=== PATIENT | male | born 1955 | race Caucasian/White ===

== ENCOUNTER 2024-05-29 11:10 | Outpatient (AMB) | payer OTHER, SELFPAY ==
--- NOTE | 2024-05-29 11:23 | A.OFFPC_ITS ---
Vital Signs 05/29/24 11:27 Height 5 ft 11.26 in Weight 209 lb 6 oz BMI 29.0 BP 136/78 Blood Pressure Location Lt brachial Position Sitting Respiration 14 Pulse 63 Pulse Source Pulse Oximeter Pulse Oximetry (%) 95 Oxygen Delivery Method Room Air Intake Visit Reasons: new patient appoint/ med request Intake Note: New patient visit Rn Charge Required: No Allergies No Known Allergies Allergy (Verified 05/29/24 11:24) Medication List - Last Reconciled 05/29/24 by Shweta Montano PA-C ascorbic acid (vitamin C) 500 mg PO DAILY aspirin 81 mg PO DAILY atorvastatin 80 mg PO DAILY bisacodyl 10 mg PO lisinopril 30 mg PO DAILY omeprazole 20 mg PO DAILY sildenafil 100 mg PO Tobacco use date assessed: 05/29/24 Fall risk assessment: No Falls in past year Last assessed Fall Risk: 05/29/24 Dental Screening Dental Screen Date: 05/29/24 Did you have a dental visit in the last 12 months?: Yes Did you have a dental problem in the last 6 months where you did not have access to dental care?: No Was dental information given to patient?: Patient has dentist HPI new patient appoint/ med request HPI Details Pt is a 68 y/o male who presents today to [facility]. He is transferring from [place]. He has a hx of ED, GERD, HTN, HLD and prostate ca and denies any acute concerns today. States that he is here because he will run out of refills on his medications before his next appointment. Uro: dx with prostate ca 10 years ago and is just monitoring it. following with Dr. Mahoney. CV: bp today is 138/78. He is on lisinopril 30 mg. Cholesterol is managed atorvastatin. GI: He states that his GERD is well-controlled with omeprazole. Colonoscopy: 12/29/23- polyps and due in 2028 Former social smoker (smoked while golfing). had AAA screening which was negative [facility] Family History (Updated 05/29/24 @ 12:18 by Sukhwinder San) Mother Hypertension High cholesterol Cancer Father Hypertension High cholesterol Mother High cholesterol Father High cholesterol Diabetes Father Diabetes Cancer Other Asthma Social History (Updated 05/29/24 @ 11:26 by Henna Song CMA) Housing: House Patient Tobacco Use Status: Former Tobacco user Cigarette Packs Per Day: 0.25 Years Smoked: 40 e-Cigarette/Vaping Use: Never Used Second Hand Smoke Exposure: Yes (past) Substance Use Type: Marijuana service: No Current occupational status: retired Cognitive needs: No Hearing needs: No Vision needs: No Questionnaire PHQ-9 Over the last 2 weeks, how often have you been bothered by any of the following problems? 1. Little interest or pleasure in doing things: not at all 2. Feeling down, depressed, or hopeless: not at all 3. Trouble falling or staying asleep, or sleeping too much: several days 4. Feeling tired or having little energy: not at all 5. Poor appetite or overeating: not at all 6. Feeling bad about yourself - or that you are a failure or have let yourself or your family down: not at all 7. Trouble concentrating on things, such as reading the newspaper or watching television: not at all 8. Moving or speaking so slowly that other people could have noticed. Or the opposite - being so fidgety or restless that you have been moving around a lot more than usual: not at all 9. Thoughts that you would be better off or of hurting yourself in some way: not at all Total score: 1 Depression Screening Interpretation: Negative Depression Screening Done: Yes 05450 - PHQ-9 Billing: Yes Source: Developed by Drs. Fili Frausto, Lisa Marcial, Juan Manuel Kirk and colleagues, with an educational chuck from [employer]. Thrive Questionnaire Date Thrive assessed: 05/29/24 I am a: Patient What is your living situation today?: I have a steady place to live Within the past 12 months, did the food you bought not last and you didn't have the money to get more?: Never true Within the past 12 months, did you worry whether your food would run out before you got money to buy more?: Never true Do you have trouble paying for medicines?: No Do you have trouble getting transportation to medical appointments?: No Do you have trouble paying your heating and electricity bill?: No Do you have trouble taking care of your child, family member or friend?: No Do you have trouble with day-to-day activities such as bathing, preparing meals, shopping, managing finances, etc.?: No Are you currently unemployed and looking for a job?: No Are you interested in more education?: No Please select the resources that you would like help with: None Currently or been in a relationship where the following occur: No concerns reported THRIVE Score: 0 AUDIT C Alcohol Use Questionnaire (AUDIT-C) 1. How often do you have a drink containing alcohol?: 4 or more times a week 2. How many drinks containing alcohol do you have on a typical day when you are drinking?: 1 or 2 3. How often do you have six or more drinks on one occasion?: Never Total Score: 4 WILLIAM-7 AMB Questionnaire WILLIAM-7 Date WILLIAM - 7 assessed: 05/29/24 Feeling nervous, anxious, or on edge: 0 = Not at all Not being able to stop or control worryin = Not at all Worrying too much about different things: 0 = Not at all Trouble relaxin = Not at all Being so restless that it is hard to sit still: 0 = Not at all Becoming easily annoyed or irritable: 1 = Several days Feeling afraid as if something awful might happen: 0 = Not at all Total WILLIAM-7 score (0-4 normal; 5-9 mild; 10-14 moderate; 15-21 severe): 1 Source: Developed by Drs. Fili Frausto, Lisa Marcial, Juan Manuel Kirk and colleagues, with an educational chuck from [employer]. WILLIAM-7 Assessment Billing WILLIAM-7 Assessment Tool: WILLIAM-7 Assessment [id number] Physical exam (Primary Care) Vital Signs: Last Vital Signs Pulse 63 05/29/24 11:27 Resp 14 05/29/24 11:27 BP 136/78 05/29/24 11:27 Pulse Ox 95 05/29/24 11:27 Oxygen Delivery Method Room Air 05/29/24 11:27 BMI result Body Mass Index 29.0 Tobacco/Smoking Status: Tobacco use Status Tobacco use date assessed 05/29/24 05/29/24 11:33 Patient Tobacco Use Status Former Tobacco user 05/29/24 11:33 e-Cigarette/Vaping Use Never Used 05/29/24 11:33 PHQ-9: PHQ-9 Score PHQ-9: Total score 1 05/29/24 11:54 Depression Screening Interpretation: Negative Thrive Assessment: Date of Thrive Assessment Date Thrive assessed 05/29/24 05/29/24 11:38 Currently or been in a relationship where the following occur: No concerns reported Assessment and Plan Assessment & Plan (1) Hypertension: Code(s): I10 - Essential (primary) hypertension Qualifiers: Hypertension type: primary hypertension Qualified Code(s): I10 - Essential (primary) hypertension Plan: Continue current regimen. Medications refilled today (2) Hyperlipidemia: Code(s): E78.5 - Hyperlipidemia, unspecified Qualifiers: Hyperlipidemia type: mixed hyperlipidemia Qualified Code(s): E78.2 - Mixed hyperlipidemia Plan: Lipids and LFTs ordered. Continue atorvastatin 80 mg. (3) Prediabetes: Code(s): R73.03 - Prediabetes Plan: Last A1c from [place] was 6. (4) Prostate CA: Code(s): C61 - Malignant neoplasm of prostate Plan: Following with urology. Advised to obtain records from them. (5) GERD (gastroesophageal reflux disease): Code(s): K21.9 - Gastro-esophageal reflux disease without esophagitis Qualifiers: Esophagitis presence: without esophagitis Qualified Code(s): K21.9 - Gastro-esophageal reflux disease without esophagitis Plan: Continue omeprazole. Orders: Orders Complete Blood Count Auto Diff Today C61 - Malignant neoplasm of prostate, E7 8.5 - Hyperlipidemia, unspecified, I10 - Essential (primary) hypertension, K21.9 - Gastro-esophageal reflux disease without esophagitis, R73.03 - Prediabetes Liver Panel Today C61 - Malignant neoplasm of prostate, E78.5 - Hyperlipidemia, unspecified, I10 - Essential (primary) hypertension, K21.9 - Gastro-esophageal reflux disease without esophagitis, R73.03 - Prediabetes, R79.89 - Other specified abnormal findings of blood chemistry TSH reflex Free T4 Today C61 - Malignant neoplasm of prostate, E78.5 - Hyperlipidemia, unspecified, I10 - Essential (primary) hypertension, K21.9 - Gastro-esophageal reflux disease without esophagitis, R73.03 - Prediabetes Hemoglobin A1c Today R73.03 - Prediabetes Comprehensive [place]. Panel Fast Today C61 - Malignant neoplasm of prostate, E78.5 - Hyperlipidemia, unspecified, I10 - Essential (primary) hypertension, K21.9 - Gastro-esophageal reflux disease without esophagitis, R73.03 - Prediabetes Medications: New finasteride 5 mg PO DAILY 90 tabs 3RF sildenafil 100 mg PO DAILY PRN 30 tabs 6RF sexual activity lisinopril 30 mg PO DAILY 90 tabs 3RF atorvastatin 80 mg PO DAILY 90 tabs 3RF Coding Level of Care Code New Pt Level 3 (01221) Complex EM visit Add On G2211 Diagnoses Primary hypertension I10 Hypertension type: primary hypertension Mixed hyperlipidemia E78.2 Hyperlipidemia type: mixed hyperlipidemia Prediabetes R73.03 Prostate CA C61 Gastroesophageal reflux disease without esophagitis K21.9 Esophagitis presence: without esophagitis Additional Codes WILLIAM-7 Assessment Billing - WILLIAM-7 Assessment Tool: WILLIAM-7 Assessment [id number] ([id number])
[2024-05-29 11:27] VITALS: BP 136/78; PULSE 63; RESP 14; O2SAT 95; BMI 29.0
== END 2024-05-29 12:35 | disposition home or self-care (01) ==
PROVIDERS: Visit Provider Physician Assistant
DX: I10 Essential (primary) hypertension (principal); E78.2 Mixed hyperlipidemia; R73.03 Prediabetes; C61 Malignant neoplasm of prostate; K21.9 Gastro-esophageal reflux disease without esophagitis
CPT/HCPCS: 99203; G2211

== ENCOUNTER 2024-08-09 09:11 | Outpatient (REF) | payer OTHER, SELFPAY ==
[2024-08-09 11:48] LABS: Basophils Percent Auto 0.6 % (0-2); Eosinophils Absolute Auto 0.4 X10*3/uL (0.0-0.4); Eosinophils Percent Auto 5.2 % (0-4); Hematocrit 40.4 % (42.0-52.0); Hemoglobin 13.9 g/dl (14.0-18.0); Imm Gran Abs Auto 0.02 X10*3/uL (0.00-0.03); Imm Gran Pct Auto 0.3 % (0.0-0.4); Lymphocytes Absolute Auto 2.1 X10*3/uL (1.2-4.9); MANUAL DIFF FLAG NO; Mean Corpuscular HGB Conc 34.4 g/dl (31.0-36.0); Mean Corpuscular Hemoglobin 30.8 pg (27.0-33.0); Mean Corpuscular Volume 89.4 fL (80.0-98.0); Monocytes Absolute Auto 0.7 X10*3/uL (0.1-1.2); Monocytes Percent Auto 10.8 % (2-11); Neutrophils Absolute Auto 3.6 x10*3/uL (2.0-8.3); Neutrophils Percent Auto 52.1 % (45-73); Platelet Count 172 X10*3/uL (160-400); Red Blood Count 4.52 X10*6/uL (4.60-5.80); Red Cell Distribution Width 13.4 % (11.0-16.0); White Blood Count 6.9 X10*3/uL (4.8-10.8)
[2024-08-09 12:09] LABS: Estimated Average Glucose 126 mg/dL; Hemoglobin A1C 157.7297 umol/L; Total Hemoglobin (HGBA1C) 3711.4197 umol/L
[2024-08-09 12:42] LABS: Alanine Aminotransferase 23 U/L (0-40); Alkaline Phosphatase 70 U/L (39-117); Anion Gap 13 (12-20); Aspartate Amino Transferase 29 U/L (5-37); Bilirubin Direct 0.2 mg/dL (0.0-0.5); Bilirubin Total 0.6 mg/dL (0.0-1.0); Blood Urea Nitrogen 16 mg/dL (9-16); Calcium 9.1 mg/dL (8.4-10.2); Carbon Dioxide 22 mmol/L (22-29); Chloride 109 mmol/L (96-108); Estimated Glomerular Filt Rate > 60; Glucose Fasting 121 mg/dL (60-99); Potassium 4.3 mmol/L (3.3-5.1); Sodium 140 mmol/L (135-145); Total Protein 6.4 g/dL (6.5-8.0)
[2024-08-09 12:43] LABS: TSH reflex Free T4 1.69 uIU/mL (0.32-4.0)
== END 2024-08-09 09:12 | disposition home or self-care (01) ==
LOC: HO.WFDLDS 09:11
PROVIDERS: Visit Provider Physician Assistant
DX: I10 Essential (primary) hypertension (principal); E78.5 Hyperlipidemia, unspecified; R73.03 Prediabetes; C61 Malignant neoplasm of prostate; K21.9 Gastro-esophageal reflux disease without esophagitis; R79.89 Other specified abnormal findings of blood chemistry
CPT/HCPCS: 36415; 80053; 80076; 82248; 83036; 84443; 85025

== ENCOUNTER → 2024-08-12 09:01 | Outpatient (BNVA) | payer OTHER, SELFPAY | PROVIDERS: Visit Provider Nurse Practitioner Family | DX: Z00.00 Encounter for general adult medical examination without abnormal findings (principal); D64.9 Anemia, unspecified; R73.03 Prediabetes; I10 Essential (primary) hypertension; E78.5 Hyperlipidemia, unspecified; Z23 Encounter for immunization | CPT/HCPCS: 90471; 90656 ==

== ENCOUNTER 2024-08-12 09:27 | Outpatient (AMB) | payer OTHER, SELFPAY ==
[2024-08-12 10:01] VITALS: BP 118/60; PULSE 68; RESP 14; TEMP 36.8; O2SAT 95; BMI 29.3
--- NOTE | 2024-08-12 10:01 | MHC.PC.OV ---
Vital Signs 08/12/24 10:01 Height 5 ft 11 in Weight 210 lb 2 oz BMI 29.3 BP 118/60 Blood Pressure Location Rt brachial Position Sitting Respiration 14 Pulse 68 Pulse Source Pulse Oximeter Temp 98.2 F Temp Source Oral Pulse Oximetry (%) 95 Oxygen Delivery Method Room Air Intake Visit Reasons: Physicial Exam Allergies No Known Allergies Allergy (Verified 08/12/24 09:12) Medication List - Last Reconciled 08/12/24 by Shweta Montano PA-C ascorbic acid (vitamin C) 500 mg PO DAILY aspirin 81 mg PO DAILY atorvastatin 80 mg PO DAILY bisacodyl 10 mg PO finasteride 5 mg PO DAILY lisinopril 30 mg PO DAILY omeprazole 20 mg PO DAILY sildenafil 100 mg PO DAILY PRN Tobacco use date assessed: 08/12/24 Dental Screening Dental Screen Date: 08/12/24 HPI Physicial Exam HPI Details Pt is a 68 y/o male who presents today for a cpe. He has a hx of ED, GERD, HTN, HLD and prostate ca and denies any acute concerns today. Uro: dx with prostate ca 10 years ago and is just monitoring it. following with Dr. Mahoney. CV: bp today is 118/60. He is on lisinopril 30 mg. Cholesterol is managed atorvastatin. GI: He states that his GERD is well-controlled with omeprazole. Endo: Last A1c was 6. He does admit to eating more Halloween candy than he should have. States that he has a sweet tooth and does not need to see a licensed embalmer and knows what he needs to do. Colonoscopy: 12/29/23- polyps and due in 2028 Former social smoker (smoked while golfing). had AAA screening which was negative [facility] Family History Mother Hypertension High cholesterol Cancer Father Hypertension High cholesterol Mother High cholesterol Father High cholesterol Diabetes Father Diabetes Cancer Other Asthma Social History Housing: House Patient Tobacco Use Status: Former Tobacco user Cigarette Packs Per Day: 0.25 Years Smoked: 40 e-Cigarette/Vaping Use: Never Used Second Hand Smoke Exposure: Yes (past) Substance Use Type: Marijuana service: No Current occupational status: retired Cognitive needs: No Hearing needs: No Vision needs: No Questionnaire PHQ-9 Over the last 2 weeks, how often have you been bothered by any of the following problems? 9. Thoughts that you would be better off or of hurting yourself in some way: not at all Source: Developed by Drs. Fili Frausto, Lisa Marcial, Juan Manuel Kirk and colleagues, with an educational chuck from [employer]. Thrive Questionnaire Date Thrive assessed: 08/12/24 WILLIAM-7 AMB Questionnaire WILLIAM-7 Date WILLIAM - 7 assessed: 08/12/24 Source: Developed by Drs. Fili Frausto, Lisa Marcial, Juan Manuel Kirk and colleagues, with an educational chuck from [employer]. Physical exam (Primary Care) Vital Signs: Last Vital Signs Temp 98.2 F 08/12/24 10:01 Pulse 68 08/12/24 10:01 Resp 14 08/12/24 10:01 BP 118/60 08/12/24 10:01 Pulse Ox 95 08/12/24 10:01 Oxygen Delivery Method Room Air 08/12/24 10:01 BMI result Body Mass Index 29.3 Tobacco/Smoking Status: Tobacco use Status Tobacco use date assessed 08/12/24 08/12/24 10:03 Patient Tobacco Use Status Former Tobacco user 08/12/24 10:03 e-Cigarette/Vaping Use Never Used 08/12/24 10:03 Thrive Assessment: Date of Thrive Assessment Date Thrive assessed 08/12/24 08/12/24 10:03 Const Orientation/consciousness: patient oriented x3 HENMT Ears: hearing grossly normal bilaterally and TM's normal bilaterally General nose exam: No nasal polyps present Face and sinus: Yes sinuses nontender Mouth: Normal oral and palatal mucosa present Eyes Pupils: Equal, round and reactive pupils present EOM: EOMs intact bilaterally Neck Neck: Yes full ROM and Yes no lymphadenopathy Thyroid: Thyroid normal Chest Chest palpation & inspection: normal inspection of the chest Resp Auscultation: clear to auscultation bilaterally Cardio Rate: regular rate Rhythm: regular rhythm Heart sounds: S1 normal heart sound present and S2 normal heart sound present Peripheral pulses: Peripheral pulses 2+ throughout GI Other: Soft, nontender Auscultation: normal bowel sounds Rectal Exam - Male: Yes deferred General: Yes no CVA tenderness Back/Spine/Pelvis Other: Nontender Back: no CVA tenderness Skin General skin exam: no rashes or lesions noted Neuro General: patient oriented x3, gait normal, CN's II-XI intact bilaterally and deep tendon reflexes 2+ bilaterally Cranial nerves: Yes Equal, round and reactive pupils present Motor exam (neuro): 5/5 motor strength present throughout Sensory Exam: double simultaneous stimulation for sensation normal Coordination: [id number] test normal and Romberg test negative Extrem General: Yes normal to inspection and Yes full ROM Psych Affect: normal affect Attitude: cooperative Thought process: Normal thought process present Thought content: Normal thought content present Insight: Good insight present (Psych) Judgement: Good judgement present (Psych) Results Reviewed Results Reviewed: Laboratory Tests 08/09/24 09:12 WBC 6.9 RBC 4.52 L Hgb 13.9 L Hct 40.4 L Plt Count 172 Creatinine 1.09 Estimated GFR > 60 Hemoglobin A1c % 6.0 AST 29 ALT 23 Alkaline Phosphatase 70 TSH 1.69 Coding Level of Care Code Est Pt Prev Care >65y(45858) Diagnoses Routine general medical examination at a health care facility Z00.00 Anemia D64.9 Prediabetes R73.03 Primary hypertension I10 Hypertension type: primary hypertension Mixed hyperlipidemia E78.2 Hyperlipidemia type: mixed hyperlipidemia Assessment & Plan Assessment & Plan (1) Routine general medical examination at a health care facility: Code(s): Z00.00 - Encounter for general adult medical examination without abnormal findings Plan: Health maintenance reviewed. Labs reviewed today. Flu shot today. (2) Anemia: Code(s): D64.9 - Anemia, unspecified Category: Medical Plan: We will check CBC, iron and B12 in 1 month. (3) Prediabetes: Code(s): R73.03 - Prediabetes Category: Medical Plan: A1c stable. We discussed the pathophysiology of diabetes today. Offered a licensed embalmer but he declines. (4) Hypertension: Code(s): I10 - Essential (primary) hypertension Category: Medical Qualifiers: Hypertension type: primary hypertension Qualified Code(s): I10 - Essential (primary) hypertension Plan: WNL. Continue current regimen. (5) Hyperlipidemia: Code(s): E78.5 - Hyperlipidemia, unspecified Category: Medical Qualifiers: Hyperlipidemia type: mixed hyperlipidemia Qualified Code(s): E78.2 - Mixed hyperlipidemia Plan: Lipids and LFTs ordered. Orders: Orders Hemoglobin A1c 3 Months R73.03 - Prediabetes
== END 2024-08-12 09:58 | disposition home or self-care (01) ==
PROVIDERS: PCP Physician Assistant; Visit Provider Physician Assistant
DX: Z00.00 Encounter for general adult medical examination without abnormal findings (principal); D64.9 Anemia, unspecified; R73.03 Prediabetes; I10 Essential (primary) hypertension; E78.2 Mixed hyperlipidemia; Z23 Encounter for immunization

== ENCOUNTER 2024-09-20 12:31 | Outpatient (REF) | payer OTHER, SELFPAY ==
[2024-09-20 14:23] LABS: MANUAL DIFF FLAG NO
[2024-09-20 14:29] LABS: Basophils Absolute Auto 0.1 X10*3/uL (0.0-0.2); Basophils Percent Auto 0.6 % (0-2); Eosinophils Absolute Auto 0.4 X10*3/uL (0.0-0.4); Eosinophils Percent Auto 4.2 % (0-4); Hematocrit 38.9 % (42.0-52.0); Hemoglobin 13.1 g/dl (14.0-18.0); Imm Gran Abs Auto 0.04 X10*3/uL (0.00-0.03); Imm Gran Pct Auto 0.5 % (0.0-0.4); Lymphocytes Absolute Auto 2.3 X10*3/uL (1.2-4.9); Lymphocytes Percent Auto 27.5 % (20-40); Mean Corpuscular HGB Conc 33.7 g/dl (31.0-36.0); Mean Corpuscular Hemoglobin 30.3 pg (27.0-33.0); Mean Corpuscular Volume 89.8 fL (80.0-98.0); Mean Platelet Volume 9.6 fL (9.4-12.4); Monocytes Absolute Auto 0.9 X10*3/uL (0.1-1.2); Monocytes Percent Auto 10.2 % (2-11); Neutrophils Absolute Auto 4.8 x10*3/uL (2.0-8.3); Platelet Count 220 X10*3/uL (160-400); Red Blood Count 4.33 X10*6/uL (4.60-5.80); Red Cell Distribution Width 13.2 % (11.0-16.0); White Blood Count 8.4 X10*3/uL (4.8-10.8)
[2024-09-20 14:47] LABS: Cholesterol 142 mg/dL (<200); HDL Cholesterol 32 mg/dL (>40); Iron 110 mcg/dL (45-160); LDL Cholesterol Calculated 73 mg/dL (<100); Percent Iron Saturation 47 % (15-50); Total Iron Binding Capacity 234 mcg/dL (228-428); Triglycerides 185 mg/dL (<150); Unsaturated Iron Binding 124 ug/dL
[2024-09-20 15:02] LABS: Ferritin 144 ng/mL (20-250)
[2024-09-20 15:20] LABS: Folate 11.1 ng/mL (> or = 4.0); Vitamin B12 292 pg/mL (200-900)
== END 2024-09-20 12:32 | disposition home or self-care (01) ==
LOC: HO.WFDLDS 12:31
PROVIDERS: Visit Provider Physician Assistant
DX: D64.9 Anemia, unspecified (principal); E78.2 Mixed hyperlipidemia; R73.03 Prediabetes
CPT/HCPCS: 36415; 80061; 82607; 82728; 82746; 83540; 85025

== ENCOUNTER → 2024-10-17 14:12 | Outpatient (BNV) | payer OTHER, SELFPAY | PROVIDERS: PCP Physician Assistant; Referring Provider Physician Assistant; Visit Provider Internal Medicine | DX: D64.9 Anemia, unspecified (principal) | CPT/HCPCS: 99204 ==

== ENCOUNTER 2025-02-06 14:04 | Outpatient (REF) | payer OTHER, SELFPAY ==
--- OUTSIDE RECORDS SUMMARY | 2025-02-06 14:57 | XMS_ITS | Encounter Summary ---
Author Organization [facility] Address [address] [place] [address] Care Team Providers Care Water Resources Engineer Name Role Phone Scarlet Lane MD Primary Care Provider Unavail Nilam Felix MD Primary Care Provider [phone] Encounter Details Date Type Department Care Team Description 11/30/2020 Senior Training Specialist Report Medical Records [address] [place] [address] Andrew Mahoney MD Social History Tobacco Use Types Packs/Day Years Used Date Smoking Tobacco: Former Cigarettes 0.1 25 Q uit: 07/09/2016 Smokeless Tobacco: Former Comments:2 - 3 cigs a day; pt states no tobacco use for 6 weeks nb Alcohol Use Standard Drinks/Week Comments Yes 0 (1 standard drink = 0.6 oz pur e alcohol) 4 - 5/WK Sex Assigned at Date Recorded Male 09/16/2023 12:06 PM EST Job Start Date Occupation Industry Not on file Not on file Not on file documented as of this encounter Plan of Treatment Not on file documented as of this encounter Visit Diagnoses Not on filedocumented in this encounter Care Teams Water Resources Engineer Relationship Specialty Start Date End Date Scarlet Lane MD PCP - General Internal Medicine 08/20/15 01/10/21 Nilam Manning MD [address] [place] [address] PCP - General Internal Medicine 01/11/21 documented as of this encounter
--- OUTSIDE RECORDS SUMMARY | 2025-02-06 14:57 | XMS_ITS | Encounter Summary ---
Author Organization [facility] Address [address] [place] [address] Care Team Providers Care Orthodontic Treatment Coordinator Name Role Phone Scarlet Lane MD Primary Care Provider Brittani Nilam Felix MD Primary Care Provider [phone] Encounter Details Date Type Department Care Team Description 02/08/2017 Telephone Medical Records [address] [place] [address] Abstract, Provider Social History Tobacco Use Types Packs/Day Years Used Date Smoking Tobacco: Former Cigarettes 0.1 25 Q uit: 07/09/2016 Smokeless Tobacco: Current Comments:2 - 3 cigs a day; pt [...] on filedocumented in this encounter Care Teams Orthodontic Treatment Coordinator Relationship Specialty Start Date End Date Scarlet Lane MD PCP - General Internal Medicine 08/20/15 01/10/21 Nilam Manning MD [address] [place] [address] PCP - General Internal Medicine 01/11/21 documented as of this encounter
--- OUTSIDE RECORDS SUMMARY | 2025-02-06 14:57 | XMS_ITS | Encounter Summary ---
Author Organization [facility] Address [address] [place] [address] Care Team Providers Care Carton Wrapper Name Role Phone Nilam Manning MD Primary Care Provider [phone] Reason for Visit * Reason Comments E-prescribe Rx Request Encounter Details Date Type Department Care Team Description 04/05/2023 Refill Adult Medicine [address] [phone] Nilam Manning MD [address] [place] [address] [id number] E-prescribe Rx Request Social History Tobacco Use Types Packs/Day Years [...] file Not on file Not on file COVID-19 Exposure Response Date Recorded In the last 10 days, have yo u been in contact with someone who was confirmed or suspected to have Coronavirus/COVID-19? No / Unsure 03/13/2023 2:43 PM EDT documented as of this encounter Miscellaneous Notes * Telephone Encounter - Tete Tabor M.A. - 04/06/2023 11:46 AM EDT Lab Results Component Value Date CHOL 177 03/10/2023 LDL 109 03/10/2023 HDL 49 03/10/2023 TRIG 99 03/10/2023 SGOT 33 03/10/2023 SGPT 48 03/10/2023 Last appt with pcp 03/13/23 Pending appt with pcp 06/07/23 * Telephone Encounter - Berta Pena - 04/05/2023 3:46 PM EDT Patient would like script to be: E-PRESCRIBED/FAXED TO PHARMACY WHEN WAS THE PATIENT'S LAST APPOINTMENT IN ADULT MEDICINE? 03/13/2023 WHEN WAS THE LAST TIME THE PATIENT SAW THEIR PCP? Same as above Does patient have an upcoming appointment? Yes 06/07/2023 (THE MEDICATION REQUESTED IS ON THE MED LIST ABOVE) All of the medications requested were on the CURRENT MEDS list Did you check the Pharmacy information above?: YES Patient wants: 30 -day supply Is this a mail order prescription request ? NO If the refill is from a FAXED refill request what is the RX # listed on the fax? N/A Patients current insurance carrier is: Payor: [facility] / Plan: [facility] MEDICARE COMPLETE $0 [id number] / Product Type: HMO [id number] documented in this encounter Plan of Treatment Not on file documented as of this encounter Visit Diagnoses Not on filedocumented in this encounter Care Teams Carton Wrapper Relationship Specialty Start Date End Date Nilam Manning MD [address] [place] [id number] PCP - General Internal Medicine 01/11/21 documented as of this encounter
--- OUTSIDE RECORDS SUMMARY | 2025-02-06 14:57 | XMS_ITS | Encounter Summary ---
Author Organization [facility] Address [address] [place] [address] Care Team Providers Care Sales Operations Consultant Name Role Phone Scarlet Lane MD Primary Care Provider Brtitani Nilam Felix MD Primary Care Provider [phone] Encounter Details Date Type Department Care Team Description 04/12/2019 Orders Only Medicine/Pediatrics - [address] [phone] Viktor Toledo PA-C Social History Tobacco Use Types Packs/Day Years [...] on filedocumented in this encounter Care Teams Sales Operations Consultant Relationship Specialty Start Date End Date Scarlet Lane MD PCP - General Internal Medicine 08/20/15 01/10/21 Nilam Manning MD [address] [place] [id number] PCP - General Internal Medicine 01/11/21 documented as of this encounter
--- OUTSIDE RECORDS SUMMARY | 2025-02-06 14:57 | XMS_ITS | Encounter Summary ---
Author Organization [facility] Address [address] [place] [address] Care Team Providers Care Survey Director Name Role Phone Nilam Manning MD Primary Care Provider [phone] Encounter Details Date Type Department Care Team Description 12/15/2022 Hosiery Pairer Report Medical Records [address] [place] [phone] Andrew Mahoney MD Social History Tobacco Use [...] on filedocumented in this encounter Care Teams Survey Director Relationship Specialty Start Date End Date Nilam Manning MD [address] [place] [address] PCP - General Internal Medicine 01/11/21 documented as of this encounter
--- OUTSIDE RECORDS SUMMARY | 2025-02-06 14:57 | XMS_ITS | Encounter Summary ---
Author Organization [facility] Address [address] [place] [address] Care Team Providers Care Whiting Machine Operator Name Role Phone Pierre Syed MD Primary Care Provider Unavail able Scarlet Lane MD Primary Care Provider Unavaila ble Nilam Manning MD Primary Care Provider [phone] Encounter Details Date Type Department Care Team Description 10/18/2011 Eye Chandelier Maker Report Medical Records [address] [place] [address] Lulu Maki [address] [place] [address] [phone] Social History Tobacco Use Types Packs/Day Years Used Date Smoking Tobacco: Every Day Cigarettes 25 Smokeless Tobacco: Never Comments:1 1/2 cigs a day Alcohol Use Standard Drinks/Week Comments Yes 0 (1 standard drink = 0.6 oz pur e alcohol) 4/WK Sex Assigned at Date Recorded Male 09/16/2023 12:06 PM EST Job Start Date Occupation Industry Not on file Not on file Not on file documented as of this encounter Plan of Treatment Not on file documented as of this encounter Visit Diagnoses Not on filedocumented in this encounter Care Teams Whiting Machine Operator Relationship Specialty Start Date End Date Pierre Syed MD PCP - General 07/22/1998 08/19/[address] MD PCP - General Internal Medicine 08/20/15 01/10/21 Nilam Manning MD [address] [place], [place] [phone] PCP - General Internal Medicine 01/11/21 documented as of this encounter
--- OUTSIDE RECORDS SUMMARY | 2025-02-06 14:57 | XMS_ITS | Encounter Summary ---
Author Organization [facility] Address [address] [place] [address] Care Team Providers Care Powder Mixer Name Role Phone Nilam Manning MD Primary Care Provider [phone] Encounter Details Date Type Department Care Team Description 12/27/2022 Jack Strip Assembler Report Medical Records [address] [place] [phone] Maria Del Carmen Scanlon PA-C Social History Tobacco Use Types Packs/Day [...] on filedocumented in this encounter Care Teams Powder Mixer Relationship Specialty Start Date End Date Nilam Manning MD [address] [place] [address] PCP - General Internal Medicine 01/11/21 documented as of this encounter
--- OUTSIDE RECORDS SUMMARY | 2025-02-06 14:57 | XMS_ITS | Encounter Summary ---
Author Organization [facility] Address [address] [place] [address] Care Team Providers Care Web Development Manager Name Role Phone Scarlet Lane MD Primary Care Provider Nilam Lopez MD Primary Care Provider [phone] Reason for Visit * Reason Onset Date Comments refill request 01/07/2021 Encounter Details Date Type Department Care Team Description 01/07/2021 Refill Medicine/Pediatrics - [address] [address] MD refill request Social History Tobacco Use Types Packs/Day Years [...] on file documented as of this encounter Miscellaneous Notes * Telephone Encounter - Lo Deluca M.A. - 01/07/2021 10:06 AM EDT Last office visit 07/29/20 with Merary Venegas Pt needs to choose new PCP and schedule a visit * Telephone Encounter - Jewelskaylan Billy - 01/07/2021 9:59 AM EDT Patient would like script to be: E-PRESCRIBED/FAXED TO PHARMACY WHEN WAS THE PATIENT'S LAST APPOINTMENT IN ADULT MEDICINE? 07/29/20 WHEN WAS THE LAST TIME THE PATIENT SAW THEIR PCP? 10/18/19 Does patient have an upcoming appointment? Pt at work - will have him call to update PCP and make an appointment (THE MEDICATION REQUESTED IS ON THE MED LIST ABOVE) All of the medications requested were on the CURRENT MEDS list Did you check the Pharmacy information above?: YES Patient wants: 90 -day supply Is this a mail order prescription request ? NO If the refill is from a FAXED refill request what is the RX # listed on the fax? N/A Patients current insurance carrier is: Payor: [employer] / Plan: [place] $25 [place] [id number] / Product Type: HMO [id number] documented in this encounter Plan of Treatment Not on file documented as of this encounter Visit Diagnoses Not on filedocumented in this encounter Care Teams Web Development Manager Relationship Specialty Start Date End Date Scarlet Lane MD PCP - General Internal Medicine 08/20/15 01/10/21 Nilam Manning MD [address] [place] [address] PCP - General Internal Medicine 01/11/21 documented as of this encounter
--- OUTSIDE RECORDS SUMMARY | 2025-02-06 14:57 | XMS_ITS | Encounter Summary ---
Author Organization [facility] Address [address] [place] [address] Care Team Providers Care Advertising Sales Assistant Name Role Phone Scarlet Lane MD Primary Care Provider Unavail Nilam Felix MD Primary Care Provider Encounter Details Date Type Department Care Team Description 10/14/2019 Spectrographer Report Medical Records [address] [place] [address] Andrew Mahoney MD Social History Tobacco Use [...] on filedocumented in this encounter Care Teams Advertising Sales Assistant Relationship Specialty Start Date End Date Scarlet Lane MD PCP - General Internal Medicine 08/20/15 01/10/21 Nilam Manning MD [address] [place] [address] PCP - General Internal Medicine 01/11/21 documented as of this encounter
--- OUTSIDE RECORDS SUMMARY | 2025-02-06 14:57 | XMS_ITS | Encounter Summary ---
Author Organization [facility] Address [address] [place] [address] Care Team Providers Care Retail Sales Manager Name Role Phone Scarlet Lane MD Primary Care Provider Nilam Lopez MD Primary Care Provider [phone] Reason for Visit * Reason Onset Date Comments Pre-visit Diabetes Lab Adult Medicine 08/24/201609/07 Encounter Details Date Type Department Care Team Description 08/24/2016 Telephone Medicine/Pediatrics - [address] [address] MD Pre-visit Diabetes Lab Adult Medicine (09/07) Social History Tobacco Use Types Packs/Day Years Used Date Smoking Tobacco: Former Cigarettes 0.1 25 Q uit: 10/21/2015 Smokeless Tobacco: Current Comments:2 - 3 cigs [...] encounter Miscellaneous Notes * Telephone Encounter - Suki Sanchez - 08/24/2016 10:39 AM EST Sent patient an email advising them to complete diabetic lab work at least three days prior to their upcoming appointment. documented in this encounter Plan of Treatment Not on file documented as of this encounter Results * HEMOGLOBIN A1C (09/07/2016 2:45 PM EST) Glycosylated Hemoglobin A1C 5.9 4.0 - 6.0 % 09/07/2016 9:36 PM EST [facility] Comment: HbA1C VALUES MAY NOT ACCURATELY REFLECT MEAN BLOOD GLUCOSE IN PATIENTS WITH HEMOGLOBIN VARIANTS SUCH HbF, HbS. 09/07/2016 2:45 PM EST 09/07/2016 2:[address] MD LAB [address] documented in this encounter Visit Diagnoses Diagnosis Diet-controlled type 2 diabetes mellitus- Primary Type II or unspecified type diabetes mellitus without mention of complication, not stated as uncontrolled documented in this encounter Care Teams Retail Sales Manager Relationship Specialty Start Date End Date Scarlet Lane MD PCP - General Internal Medicine 08/20/15 01/10/21 Nilam Manning MD [address] [place] [address] PCP - General Internal Medicine 01/11/21 documented as of this encounter
--- OUTSIDE RECORDS SUMMARY | 2025-02-06 14:57 | XMS_ITS | Encounter Summary ---
Author Organization [facility] Address [address] [place] [address] Care Team Providers Care Cigar Head Puncher Name Role Phone Scarlet Lane MD Primary Care Provider Unavail Nilam Felix MD Primary Care Provider [phone] Encounter Details Date Type Department Care Team Description 12/28/2016 Banquet Line Cook Report Medical Records [address] [place] [address] Erik Schulte MD Social History Tobacco Use Types Packs/Day [...] on filedocumented in this encounter Care Teams Cigar Head Puncher Relationship Specialty Start Date End Date Scarlet Lane MD PCP - General Internal Medicine 08/20/15 01/10/21 Nilam Manning MD [address] [place] [address] PCP - General Internal Medicine 01/11/21 documented as of this encounter
--- OUTSIDE RECORDS SUMMARY | 2025-02-06 14:57 | XMS_ITS | Encounter Summary ---
Author Organization [facility] Address [address] [place] [address] Care Team Providers Care Crab Catcher Name Role Phone Pierre Syed MD Primary Care Provider Unavail able Scarlet Lane MD Primary Care Provider Unavaila ble Nilam Manning MD Primary Care Provider [phone] Encounter Details Date Type Department Care Team Description 07/29/2014 Questioned Documents Examiner Report Medical Records [address] [place] [address] Maria Del Carmen Scanlon PA-C Social History Tobacco Use Types Packs/Day Years Used Date Smoking Tobacco: Every Day Cigarettes 0.1 25 Smokeless Tobacco: Current Comments:2 - 3 cigs a day Alcohol Use Standard Drinks/Week [...] on filedocumented in this encounter Care Teams Crab Catcher Relationship Specialty Start Date End Date Pierre Syed MD PCP - General 07/22/1998 08/19/[address] MD PCP - General Internal Medicine 08/20/15 01/10/21 Nilam Manning MD [address] [place] [address] PCP - General Internal Medicine 01/11/21 documented as of this encounter
--- OUTSIDE RECORDS SUMMARY | 2025-02-06 14:57 | XMS_ITS | Clinical Summary ---
Author Organization [facility] Address [address] [place] [address] Care Team Providers Care Electronic Design Engineer Name Role Phone Nilam Manning MD Primary Care Provider [phone] Allergies Active Allergy Reactions Severity Noted Date Comments Seasonal Allergies 03/17/2009 Medications Medication Sig Dispensed Refills Start Date End Date Status VITAMIN C 1000 MG OR TABS Take 500 mg by mouth. 0 Active CALCIUM 600 + D OR qd 0 7 Active SB LOW DOSE ASA EC 81 MG OR TBEC 1 TABLET DAILY 0 Active famotidine (PEPCID) 20 MG tablet TAKE 1 TABLET BY MOUTH TWICE DAILY NEEDED FOR HEARTBURN 180 Tablet 1 2 Active bisacodyl (Dulcolax) 5 MG EC tablet Take 2 tabs by mouth right before beginning bowel prep. Follow instructions given by office for timing. 2 Tablet 0 4 Active polyethylene glycol (GoLYTELY,NuLYTELY) 236 g suspension Take 240 mL by mouth once for 1 dose. Take 4L by mouth once for one dose. May substitue any PEG. Starting at 6PM the night before your procedure drink 1 8oz glasses at your own pace until rectals run clear. 4000 mL 0 4 Active atorvastatin (LIPITOR) 80 MG tablet Take 1 Tablet by mouth daily. 90 Tablet 1 4 Active omeprazole (PRILOSEC) 20 MG capsule Take 1 Capsule by mouth daily. 30 Capsule 5 4 Active lisinopril (PRINIVIL,ZESTRIL) 30 MG tablet Take 1 Tablet by mouth daily. 90 Tablet 1 4 Active finasteride (PROSCAR) 5 MG tablet Take 1 Tablet by mouth daily. 90 Tablet 1 4 Active sildenafil (VIAGRA) 100 MG tabletIndications:Essent ial hypertension, benign,Pure hypercholesterolemia TAKE 1 TABLET BY MOUTH 1 HOUR PRIOR TO SEXUAL INTERCOURSE 20 Tablet 2 4 Active Active Problems Patient Care Coordination No te Formatting of this note is d ifferent from the original. Checking Your Blood Sugars Please check your blood sugars 2 times per week. Please check your sugars at the following times of day: before breakfast Your Blood Sugar Goals Pre Meal: 90-130 2 hours after meals: 110-160 Bedtime: 110-150 Use the Results ?? Bring your glucometer to every appointment ?? Write your fingerstick blood sugars down on a log sheet or record book. Bring them to your appointment ?? Look for patterns in the numbers. The results help you and your provider make decisions about your diabetes treatment plan. Your Results and your Goals Your Result / Date of Completion Your Goal / How Often to Assess Component Value Date HGBA1C 5.9 09/07/2016 Less than 7%--- 4 times per year BP Readings from Last 1 Encounters: 09/08/16 112/70 Less than 130/80--- every visit Component Value Date LDL 88 02/10/2016 LDL less than 100--- once per year Component Value Date MALBUR 6.9 02/10/2016 Less than 30--- once per year Wt Readings from Last 1 Encounters: 09/08/16 215 lb 9.6 oz (97.796 kg) Your goal weight by next visit: 208 --- reassess 2-4 times a year Health Maintenance Due Topic Date Due ? ? Adult Immunization: Zostavax For Patients Over 60 2015 ? ? Influenza (#1 of 1) 06/02/2016 ? ? Diabetes: Annual Foot Exam 09/02/2016 ? ? Diabetes: Annual Care Plan 09/02/2016 Your Action Plan Your diabetes is well controlled and no changes are required to your current plan. Check blood glucose as directed and write down all results. Check feet for sores every day Continue to work on weight loss with a goal of losing 2-4 pounds per month Increase physical activity Contact me if you experience any barriers to care such as inability to purchase your medication, difficulty getting to your appointments or difficulty understanding your care plan Please get your yearly flu shot When to Call your Healthcare Provider If your blood sugar falls below 70 and you do not know why or you become unconscious If you are sick and unable to take liquids because or nausea or vomiting If you have a fever over 101 If your blood sugar is 300 or higher on greater than 3 separate occasions during the same week If you are just unsure what to do Educational Resources [place] [employer] (www.diabetes.org) Centers for Disease Control and Prevention (www.cdc.gov/diabetes) This care plan was created in collaboration with Prakash Ansari on 09/08/2016 Problem Noted Date Polyp of colon 01/01/2024 Overview: Per GI reported during recent colonoscopy December 2023, multiple in cecum and rectum. GI would determine next surveillance colonoscopy Atypical chest pain 11/09/2020 Overview: Nonproductive stress test recommending stress echo in October 2020. Patient declined stress echo. Patient declined follow-up with cardiology. He was made aware of the risks of not pursuing further cardiac work-up including undiagnosed cardiovascular disease which can lead to HI, CVA and adverse medical complication including but not limited to . Prediabetes 09/02/2015 Prostate cancer - Romie 6, 1 core 10% 12/26/2013 Overview: Sees [facility] BPH (benign prostatic hyperplasia) 10/23 Overview: Psa 4.4 10/14 - start finasteride GERD (gastroesophageal reflux disease) 1 Overview: Normal EGD on PPI rx 07/20/2012. Diverticulosis of colon (without mention of hemorrhage) 07/20/2012 Overview: Incidental finding at colonoscopy 07/20/2012. Erectile dysfunction 07/16/2009 Essential hypertension, benign 6 Former tobacco use 09/22/2006 Pure hypercholesterolemia 07/25/2006 Overweight 07/25/2006 Resolved Problems Problem Noted Date Resolved Date Diabetes with neurologic complications 8 09/02/2015 Immunizations Name Administration Dates Next Due COVID-19 (Pfizer) 01/16/2021,12/26/2020 Influenza (> 6 Months) 09/08/2016,2014,08/26/2014,08/13,07/16/2012,07/18/2011,08/03/2010 ,09/23/2009,10/13/2008 Influenza H1N1 Pandemic Flu Vaccine 10/16/2009 Influenza Vaccine-preservati ve Free-quadrivalent 4 Years 10/18/2019,09/05/2018 Influenza Vaccine-quadrivale nt 4 Years Plus 08/28/2017 Pneumoccoccal(Adult) Polysac charide PPSV23 10/13/2008 Pneumococcal Conjugate PCV-13 02/26/2015 TD (STATE SUPPLIED FOR ADULT S AND CHILDREN) 09/05/2018,05/04/2000 Tdap 08/18/2008 Family History Medical History Relation Name Comments No Known Problems Aunt No Known Problems Brother 1 No Known Problems Brother 2 Cancer of the Prostate Father Cataract Father Cholesterol Level Father Diabetes Father No Known Problems Maternal Grandfather No Known Problems Maternal Grandmother Cancer, Other Mother RENAL Stroke Mother passed 08/2017 No Known Problems Other No Known Problems Paternal Grandfather No Known Problems Paternal Grandmother No Known Problems Sister 1 No Known Problems Sister 2 No Known Problems Sister 3 No Known Problems Uncle Blindness Negative Hx Glaucoma Negative Hx Macular Degeneration Negative Hx Strabismus Negative Hx Relation Name Status Comments Aunt Brother 1 Alive healthy Brother 2 Alive healthy Father Dementia, PROST ATE CA, DM, CHOL Maternal Grandfather (Age 60s) U K - appendix infection? Maternal Grandmother (Age 93) Mother (Age 88) RENAL CANC ER , HEART DISEASE CAD Other Paternal Grandfather (Age 70s) U K appendix infection? Paternal Grandmother (Age 70s) U K Sister 1 Alive healthy Sister 2 Alive healthy Sister 3 Alive healthy Uncle Social History Tobacco Use Types Packs/Day Years Used Date Smoking Tobacco: Former Cigarettes 0.1 25 Q uit: 07/09/2016 Smokeless Tobacco: Former Tobacco Cessation:Counseling Given: Not Answered Comments:2 - 3 cigs a day; 12/02/15 pt states no tobacco use for 6 weeks nb Alcohol Use Standard Drinks/Week Comments Yes 0 (1 standard drink = 0.6 oz pur e alcohol) 4 - 5/WK Sex Assigned at Date Recorded Male 09/16/2023 12:06 PM EST Job Start Date Occupation Industry Not on file Not on file Not on file Last Filed Vital Signs Vital Sign Reading Time Taken Comments Blood Pressure 134/86 06/07/2023 3:43 PM EDT Pulse 70 12/26/2023 8:41 AM EDT Temperature 36.5 ??C (97.7 ??F) 12/26/2023 8:41 AM ED T Respiratory Rate 14 12/26/2023 8:41 AM EDT Oxygen Saturation 97% 06/07/2023 3:43 PM EDT Inhaled Oxygen Concentration - - Weight 93 kg (205 lb) 12/26/2023 8:41 AM EDT Height 180.3 cm (5' 11 ) 12/26/2023 8:41 AM EDT Body Mass Index 28.59 12/26/2023 8:41 AM EDT Plan of Treatment Health Maintenance Due Date Last Done Comments DEPRESSION SCREEN 1967 SHINGLES VACCINE (1 of 2) 2005 FALL RISK ASSESSMENT 2020 PNEUMOCOCCAL VACCINE (3 - PP SV23 or PCV20) 2020 02/26/2015, 10/13/2008 Covid-19 Vaccine ( - 2022-2 4 season) 2024 01/16/2021, 12/26/2020 BMI CHECK/ADVISE 10/02/2024 12/26/2023, 03/2023, 03/13/2023, Additional history exists INFLUENZA (Season Ended) 2025 020, 10/18/2019, 09/05/2018, Additional history exists DTAP/TDAP/TD (3 - Td or Tdap) 09/05/2028, 08/18/2008, 05/04/2000 CHOLESTEROL SCREENING 12/21/2028 12/22/2023 , 03/10/2023, 08/23/2021, Additional history exists COLON CANCER SCREENING 12/28/2028 , 07/20/2012, 07/20/2012, Additional history exists HEPATITIS C SCREENING Completed 05/10/2013 ABDOMINAL AORTIC ANEURYSM (A AA) SCREENING Completed 02/20/2023 Care Teams Electronic Design Engineer Relationship Specialty Start Date End Date Nilam Manning MD [address] [place] [address] PCP - General Internal Medicine 01/11/21
--- OUTSIDE RECORDS SUMMARY | 2025-02-06 14:57 | XMS_ITS | Encounter Summary ---
Author Organization [facility] Address [address] [place] [address] Care Team Providers Care Agricultural Specialist Name Role Phone Nilam Manning MD Primary Care Provider [phone] Encounter Details Date Type Department Care Team Description 01/01/2024 Orders Only Adult Medicine [address] [phone] Nilam Manning MD [address] [place] [phone] Polyp of colon, unspecified part of colon, unspecified type (Primary Dx) Social History Tobacco Use Types Packs/Day Years [...] documented as of this encounter Visit Diagnoses Diagnosis Polyp of colon, unspecified part of colon, unspecified type- Primary documented in this encounter Care Teams Agricultural Specialist Relationship Specialty Start Date End Date Nilam Manning MD [address] [place] [address] PCP - General Internal Medicine 01/11/21 documented as of this encounter
--- OUTSIDE RECORDS SUMMARY | 2025-02-06 14:57 | XMS_ITS | Encounter Summary ---
Author Organization [facility] Address [address] [place] [address] Care Team Providers Care Licensed Dispensing Optician Name Role Phone Pierre Syed MD Primary Care Provider Unavail able Scarlet Lane MD Primary Care Provider Unavaila ble Nilam Manning MD Primary Care Provider [phone] Encounter Details Date Type Department Care Team Description 12/05/2013 Poultry Offal Icer Report Medical Records [address] [place] [address] Erik Schulte MD Social History Tobacco Use [...] on filedocumented in this encounter Care Teams Licensed Dispensing Optician Relationship Specialty Start Date End Date Pierre Syed MD PCP - General 07/22/1998 08/19/[address] MD PCP - General Internal Medicine 08/20/15 01/10/21 Nilam Manning MD [address] [place] [address] PCP - General Internal Medicine 01/11/21 documented as of this encounter
--- OUTSIDE RECORDS SUMMARY | 2025-02-06 14:57 | XMS_ITS | Encounter Summary ---
Author Organization [facility] Address [address] [place] [address] Care Team Providers Care Cargo Handler Name Role Phone Scarlet Lane MD Primary Care Provider Brittani Nilam Felix MD Primary Care Provider [phone] Encounter Details Date Type Department Care Team Description 08/10/2017 Resource Technician Report Medical Records [address] [place] [address] Abstract, Provider Social History Tobacco Use Types [...] on filedocumented in this encounter Care Teams Cargo Handler Relationship Specialty Start Date End Date Scarlet Lane MD PCP - General Internal Medicine 08/20/15 01/10/21 Nilam Manning MD [address] [place] [address] PCP - General Internal Medicine 01/11/21 documented as of this encounter
--- OUTSIDE RECORDS SUMMARY | 2025-02-06 14:57 | XMS_ITS | Encounter Summary ---
Author Organization [facility] Address [address] [place] [address] Care Team Providers Care Radio Presenter Name Role Phone Pierre Syed MD Primary Care Provider Unavail able Scarlet Lane MD Primary Care Provider Unavaila ble Nilam Manning MD Primary Care Provider [phone] Encounter Details Date Type Department Care Team Description 04/21/2014 Design Center Consultant Report Medical Records [address] [place] [address] Erik Schulte MD Social History Tobacco Use [...] on filedocumented in this encounter Care Teams Radio Presenter Relationship Specialty Start Date End Date Pierre Syed MD PCP - General 07/22/1998 08/19/[address] MD PCP - General Internal Medicine 08/20/15 01/10/21 Nilam Manning MD [address] [place] [address] PCP - General Internal Medicine 01/11/21 documented as of this encounter
--- OUTSIDE RECORDS SUMMARY | 2025-02-06 14:57 | XMS_ITS | Encounter Summary ---
Author Organization [facility] Address [address] [place] [address] Care Team Providers Care Calender Runner Name Role Phone Scarlet Lane MD Primary Care Provider [facility] Nilam Felix MD Primary Care Provider Encounter Details Date Type Department Care Team Description 07/16/2020 Orders Only Medical Records [address] [place] [address] MD Social History Tobacco Use Types Packs/Day [...] on file documented as of this encounter Procedures Procedure Name Priority Date/Time Associated Diagnosis Comments OUTSIDE LAB Routine 07/15/2020 documented in this encounter Results * OUTSIDE LAB (07/15/2020) Scarlet Lane MD LAB documented in this encounter Visit Diagnoses Not on filedocumented in this encounter Care Teams Calender Runner Relationship Specialty Start Date End Date Scarlet Lane MD PCP - General Internal Medicine 08/20/15 01/10/21 Nilam Manning MD [address] [place] [address] PCP - General Internal Medicine 01/11/21 documented as of this encounter
--- OUTSIDE RECORDS SUMMARY | 2025-02-06 14:57 | XMS_ITS | Encounter Summary ---
Author Organization [facility] Address [address] [place] [address] Care Team Providers Care Sheet Metal Duct Worker Supervisor Name Role Phone Nilam Manning MD Primary Care Provider [phone] Encounter Details Date Type Department Care Team Description 10/25/2023 Orders Only Medical Records [address] [place] [address] Andrew Mahoney MD Social History Tobacco Use [...] Name Priority Date/Time Associated Diagnosis Comments OUTSIDE ULTRASOUND Routine 12/15/2022 documented in this encounter Results * OUTSIDE ULTRASOUND (12/15/2022) Andrew Mahoney MD RADIOLOGY documented in this encounter Visit Diagnoses Not on filedocumented in this encounter Care Teams Sheet Metal Duct Worker Supervisor Relationship Specialty Start Date End Date Nilam Manning MD [address] [place] [address] PCP - General Internal Medicine 01/11/21 documented as of this encounter
--- OUTSIDE RECORDS SUMMARY | 2025-02-06 14:57 | XMS_ITS | Encounter Summary ---
Author Organization [facility] Address [address] [place] [address] Care Team Providers Care Branch Manager Trainee Name Role Phone Nilam Manning MD Primary Care Provider [phone] Encounter Details Date Type Department Care Team Description 01/02/2024 Orders Only Medical Records [address] [place] [address] Remi Garcia, DO [address] [facility] [address] [facility] [place] [address] Social History Tobacco Use Types Packs/Day Years [...] on file documented as of this encounter Progress Notes * Oma Beavers - 01/15/2024 1:51 PM EDT Letter mailed * Oma Beavers - 01/05/2024 9:10 AM EDT 2nd attempt, LM for pt to call back * Remi Garcia DO - 01/03/2024 10:32 AM EDT Please let the patient know that the colon polyp removed was benign, but precancerous. Given the type and size of the polyp, and based on current guidelines, I recommend that a repeat screening colonoscopy is in [address] a reminder on the system for the patient to be contacted to have a repeat screening colonoscopy in 5 years. High-fiber diet and avoidance of processed foods recommended. The patient may follow-up with a primary care provider as instructed. Thank you. documented in this encounter Plan of Treatment Not on file documented as of this encounter Procedures Procedure Name Priority Date/Time Associated Diagnosis Comments OUTSIDE PATHOLOGY Routine 12/29/2023 documented in this encounter Results * OUTSIDE PATHOLOGY (12/29/2023) Remi Garcia DO OUTSIDE LAB documented in this encounter Visit Diagnoses Not on filedocumented in this encounter Care Teams Branch Manager Trainee Relationship Specialty Start Date End Date Nilam Manning MD [address] [place] [address] PCP - General Internal Medicine 01/11/21 documented as of this encounter
--- OUTSIDE RECORDS SUMMARY | 2025-02-06 14:57 | XMS_ITS | Encounter Summary ---
Author Organization [facility] Address [address] [place] [address] Care Team Providers Care Transportation Solutions Manager Name Role Phone Nilam Manning MD Primary Care Provider [phone] Reason for Visit * Reason Onset Date Comments Medication 11/08/2023 Encounter Details Date Type Department Care Team Description 11/08/2023 Refill Gastroenterology - [address] [place] [address] Ivania Quiroz MD [address] [place] [address] Medication Social History Tobacco Use Types Packs/Day Years [...] on filedocumented in this encounter Care Teams Transportation Solutions Manager Relationship Specialty Start Date End Date Nilam Manning MD [address] [place] [address] PCP - General Internal Medicine 01/11/21 documented as of this encounter
--- OUTSIDE RECORDS SUMMARY | 2025-02-06 14:57 | XMS_ITS | Encounter Summary ---
Author Organization [facility] Address [address] [place] [address] Care Team Providers Care Mixed Livestock Farm Worker Name Role Phone Scarlet Lane MD Primary Care Provider Unavail Nilam Felix MD Primary Care Provider [phone] Encounter Details Date Type Department Care Team Description 02/12/2018 Construction Millwright Report Medical Records [address] [place] [address] Andrew Mahoney MD Social History Tobacco Use [...] on filedocumented in this encounter Care Teams Mixed Livestock Farm Worker Relationship Specialty Start Date End Date Scarlet Lane MD PCP - General Internal Medicine 08/20/15 01/10/21 Nilam Manning MD [address] [place] [address] PCP - General Internal Medicine 01/11/21 documented as of this encounter
--- OUTSIDE RECORDS SUMMARY | 2025-02-06 14:57 | XMS_ITS | Encounter Summary ---
Author Organization [facility] Address [address] [place] [address] Care Team Providers Care Equine Dentist Name Role Phone Nilam Manning MD Primary Care Provider [phone] Reason for Visit * Reason Comments E-prescribe Rx Request Encounter Details Date Type Department Care Team Description 06/16/2021 Refill Adult Medicine [address] [id number] Fatuma Samayoa NP E-prescribe Rx Request Social History Tobacco Use [...] Telephone Encounter - Lo Deluca M.A. - 06/16/2021 1:52 PM EDT Last office visit 07/29/20 Next office visit 06/24/21 Patient requests 90 days supply Lab Results Component Value Date CHOL 154 04/09/2019 LDL 81 04/09/2019 HDL 42 04/09/2019 TRIG 158 04/09/2019 SGOT 31 04/09/2019 SGPT 44 04/09/2019 * Telephone Encounter - Abebanubia Olivas - 06/16/2021 12:41 PM EDT Patient would like script to be: E-PRESCRIBED/FAXED TO PHARMACY WHEN WAS THE PATIENT'S LAST APPOINTMENT IN ADULT MEDICINE? 07/29/20 WHEN WAS THE LAST TIME THE PATIENT SAW THEIR PCP? Has not seen Does patient have an upcoming appointment? Yes 06/24/21 (THE MEDICATION REQUESTED IS ON THE MED [...] N/A Patients current insurance carrier is: Payor: [facility] / Plan: [facility] MEDICARE COMPLETE $0 [id number] / Product Type: HMO [id number] documented in this encounter Plan of Treatment Not on file documented as of this encounter Visit Diagnoses Not on filedocumented in this encounter Care Teams Equine Dentist Relationship Specialty Start Date End Date Nilam Manning MD [address] [place] [address] PCP - General Internal Medicine 01/11/21 documented as of this encounter
--- OUTSIDE RECORDS SUMMARY | 2025-02-06 14:57 | XMS_ITS | Encounter Summary ---
Author Organization [facility] Address [address] [place] [address] Care Team Providers Care Vascular Technologist Name Role Phone Pierre Syed MD Primary Care Provider Unavail able Scarlet Lane MD Primary Care Provider Unavaila ble Nilam Manning MD Primary Care Provider [phone] Encounter Details Date Type Department Care Team Description 08/20/2014 Regional Driver Report Medical Records [address] [place] [address] Julia Hines PA-C Social History Tobacco Use Types Packs/Day [...] on filedocumented in this encounter Care Teams Vascular Technologist Relationship Specialty Start Date End Date Pierre Syed MD PCP - General 07/22/1998 08/19/[address] MD PCP - General Internal Medicine 08/20/15 01/10/21 Nilam Manning MD [address] [place] [address] PCP - General Internal Medicine 01/11/21 documented as of this encounter
--- OUTSIDE RECORDS SUMMARY | 2025-02-06 14:57 | XMS_ITS | Encounter Summary ---
Author Organization [facility] Address [address] [place] [address] Care Team Providers Care Radio Presenter Name Role Phone Scarlet Lane MD Primary Care Provider Unavail Nilam Felix MD Primary Care Provider [phone] Encounter Details Date Type Department Care Team Description 11/14/2019 Rn Gynecology Report Medical Records [address] [place] [address] Andrew Mahoney MD Social History Tobacco Use [...] Presenter Relationship Specialty Start Date End Date Scarlet Lane MD PCP - General Internal Medicine 08/20/15 01/10/21 Nilam Manning MD [address] [place] [address] PCP - General Internal Medicine 01/11/21 documented as of this encounter
--- OUTSIDE RECORDS SUMMARY | 2025-02-06 14:57 | XMS_ITS | Encounter Summary ---
Author Organization [facility] Address [address] [place] [address] Care Team Providers Care Claim Clerk Name Role Phone Scarlet Lane MD Primary Care Provider Nilam Lopez MD Primary Care Provider [phone] Reason for Visit * Reason Onset Date Comments REFERRAL 09/11/2017 Dermatology Encounter Details Date Type Department Care Team Description 09/11/2017 Telephone Dermatology - [address] [address] Cortez Puga PA-C REFERRAL (Dermatology) Social History Tobacco Use Types Packs/Day Years [...] encounter Miscellaneous Notes * Telephone Encounter - Janeen Hoffman - 09/11/2017 8:30 AM EST I have been unable to reach this patient by phone. A letter is being sent to the last known home address. Reason for referral: skin check documented in this encounter Plan of Treatment Not on file documented as of this encounter Visit Diagnoses Not on filedocumented in this encounter Care Teams Claim Clerk Relationship Specialty Start Date End Date Scarlet Lane MD PCP - General Internal Medicine 08/20/15 01/10/21 Nilam Manning MD [address] [place] [address] PCP - General Internal Medicine 01/11/21 documented as of this encounter
--- OUTSIDE RECORDS SUMMARY | 2025-02-06 14:57 | XMS_ITS | Encounter Summary ---
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
--- OUTSIDE RECORDS SUMMARY | 2025-02-06 14:57 | XMS_ITS | Encounter Summary ---
Author Organization [facility] Address [address] [place] [address] Care Team Providers Care Supervisor Home Energy Consultant Name Role Phone Scarlet Lane MD Primary Care Provider Unavail Nilam Felix MD Primary Care Provider [phone] Encounter Details Date Type Department Care Team Description 04/08/2019 Consulting Group Analyst Report Medical Records [address] [place] [address] Andrew Mahoney MD Social History Tobacco Use [...] on filedocumented in this encounter Care Teams Supervisor Home Energy Consultant Relationship Specialty Start Date End Date Scarlet Lane MD PCP - General Internal Medicine 08/20/15 01/10/21 Nilam Manning MD [address] [place] [address] PCP - General Internal Medicine 01/11/21 documented as of this encounter
--- OUTSIDE RECORDS SUMMARY | 2025-02-06 14:57 | XMS_ITS | Encounter Summary ---
Author Organization [facility] Address [address] [place] [address] Care Team Providers Care Satellite Dish Technician Name Role Phone Scarlet Lane MD Primary Care Provider Unavail Nilam Felix MD Primary Care Provider [phone] Encounter Details Date Type Department Care Team Description 01/23/2017 Line Rider Report Medical Records [address] [place] [address] Andrew Mahoney MD Social History Tobacco Use [...] on filedocumented in this encounter Care Teams Satellite Dish Technician Relationship Specialty Start Date End Date Scarlet Lane MD PCP - General Internal Medicine 08/20/15 01/10/21 Nilam Manning MD [address] [place] [address] PCP - General Internal Medicine 01/11/21 documented as of this encounter
--- OUTSIDE RECORDS SUMMARY | 2025-02-06 14:57 | XMS_ITS | Encounter Summary ---
Author Organization [facility] Address [address] [place] [address] Care Team Providers Care Ship/Rec/Doc Control Name Role Phone Nilam Manning MD Primary Care Provider Reason for Visit * Reason Onset Date Comments Medication 12/22/2023 Encounter Details Date Type Department Care Team Description 12/22/2023 Refill Gastroenterology - [address] [place] [address] Ivania Quiroz MD [address] [place] [address] Medication Social History Tobacco Use Types [...] on filedocumented in this encounter Care Teams Ship/Rec/Doc Control Relationship Specialty Start Date End Date Nilam Manning MD [address] [place] [address] PCP - General Internal Medicine 01/11/21 documented as of this encounter
--- OUTSIDE RECORDS SUMMARY | 2025-02-06 14:57 | XMS_ITS | Encounter Summary ---
Author Organization [facility] Address [address] [place] [address] Care Team Providers Care Engineering Intern Name Role Phone Pierre Syed MD Primary Care Provider Unavail Scarlet Ojeda MD Primary Care Provider Unavaila Nilam Felix MD Primary Care Provider [phone] Encounter Details Date Type Department Care Team Description 06/18/2003 Orders Only Adult Medicine - [address] [place] [address] Pierre Syed MD PURE HYPERCHOLESTEROLEMIA; UNSPECIFIED ADVERSE EFFECT OF DRUG, MEDICINAL AND BIOLOGICAL SUBSTANCE, NOT EL Social History Tobacco Use Types Packs/Day Years Used Date Smoking Tobacco: Never Assessed Sex Assigned at Date Recorded Male 09/16/2023 12:06 PM EST Job Start Date Occupation Industry Not on file Not on file Not on file documented as of this encounter Plan of Treatment Scheduled Orders Name Type Priority Associated Diagnoses Orde r Schedule VENIPUNCTURE Lab Routine Pure Hypercholesterolemia Ordered: 06/18/2003 documented as of this encounter Procedures Procedure Name Priority Date/Time Associated Diagnosis Comments CHG LIPID PANEL Routine 06/18/2003 11:14 AM EDT Pure Hypercholesterolemia CHG COMPREHENSIVE METABOLIC PANEL Routine 06/18/2003 11:14 AM EDT UNSPECIFIED ADVERSE EFFECT OF DRUG, MEDICINAL AND BIOLOGICAL SUBSTANCE, NOT EL documented in this encounter Results * LIPID PROFILE (06/18/2003 11:14 AM EDT) [facility] Cholesterol 188 MG/DL [facility] TRIGLYCERIDE 134 MG/DL [facility] HDL 47 MG/DL [facility] LDL-CALC 114 MG/DL [facility] VLDL 27 MG/DL [facility] TC/HDL-C RATIO 4.0 . [facility] COMMENT SERUM/PLASMA LIPIDS REFERENCE RANGES [facility] COMMENT TOT.CHOLESTEROL* OPTIMAL* <200 [facility] COMMENT BORDERLINE HIGH 200-239 [facility] COMMENT HIGH >240 [facility] COMMENT TRIGYLCERIDES *OPTIMAL* <150 [facility] COMMENT BORDERLINE HIGH 150-199 [facility] COMMENT HIGH >200 [facility] COMMENT HDL CHOLESTEROL *OPTIMAL* >40 [facility] COMMENT LDL CHOLESTEROL *OPTIMAL* <100 [facility] COMMENT NEAR OPTIMAL 100-129 [facility] COMMENT BORDERLINE HIGH 130-159 [facility] COMMENT HIGH 160-189 [facility] COMMENT VERY HIGH >190 [facility] COMMENT *IF TRIG.>=500, LDL NOT MEANINGFUL [facility] COMMENT VLDL *OPTIMAL* <40 [facility] COMMENT TC/HDL-C RATIO *OPTIMAL* <4.5 [facility] 06/18/2003 11:1 4 AM EDT 06/18/2003 1:44 PM EDT Pierre Syed MD LAB [facility] * COMPREHENSIVE METABOLIC PANEL (06/18/2003 11:14 AM EDT) Pathologist [facility] GLUCOSE 97 70 - 110 MG/DL [facility] BUN 13 5 - 25 MG/DL [facility] CREAT 0.9 0.7 - 1.5 MG/DL [facility] Sodium 140 133 - 145 MEQ/L [facility] Potassium 4.7 3.5 - 5.2 MEQ/L [facility] Chloride 108 96 - 108 MEQ/L [facility] CO2 26.5 21.0 - 32.0 MEQ/L [facility] TOT PROTEIN 6.9 6.0 - 8.0 G/DL [facility] Albumin 4.4 3.2 - 5.6 G/DL [facility] GLOBULIN 2.5 1.9 - 4.4 G/DL [facility] A/G RATIO 1.8 1.1 - 2.3 . [facility] TOT BILI 0.4 0.0 - 1.4 MG/DL [facility] CALCIUM 9.3 8.5 - 10.5 MG/DL [facility] SGPT 21 10 - 60 IU/L [facility] SGOT 19 10 - 42 IU/L [facility] ALK PHOS 68 42 - 121 IU/L [facility] BUN/CRE RATIO 14 6 - 20 . [facility] 06/18/2003 11:1 4 AM EDT 06/18/2003 1:44 PM EDT Pierre Syed MD LAB [facility] documented in this encounter Visit Diagnoses Diagnosis Pure hypercholesterolemia UNSPECIFIED ADVERSE EFFECT OF DRUG, MEDICINAL AND BIOLOGICAL SUBSTANCE, NOT EL Other and unspecified adverse effect of drug, medicinal and biological substance documented in this encounter Care Teams Engineering Intern Relationship Specialty Start Date End Date Pierre Syed MD PCP - General 07/22/1998 08/19/[address] MD PCP - General Internal Medicine 08/20/15 01/10/21 Nilam Manning MD [address] [place] [address] PCP - General Internal Medicine 01/11/21 documented as of this encounter
--- OUTSIDE RECORDS SUMMARY | 2025-02-06 14:58 | XMS_ITS | Encounter Summary ---
Author Organization [facility] Address [address] [place] [address] Care Team Providers Care Eap Specialist Name Role Phone Pierre Syed MD Primary Care Provider Unavail able Scarlet Lane MD Primary Care Provider Unavaila ble Nilam Manning MD Primary Care Provider [phone] Encounter Details Date Type Department Care Team Description 07/30/2015 Instructor Of Nursing Report Medical Records [address] [place] [address] Erik Schulte MD Social History Tobacco Use [...] on filedocumented in this encounter Care Teams Eap Specialist Relationship Specialty Start Date End Date Pierre Syed MD PCP - General 07/22/1998 08/19/[address] MD PCP - General Internal Medicine 08/20/15 01/10/21 Nilam Manning MD [address] [place] [address] PCP - General Internal Medicine 01/11/21 documented as of this encounter
--- OUTSIDE RECORDS SUMMARY | 2025-02-06 14:58 | XMS_ITS | Encounter Summary ---
Author Organization [facility] Address [address] [place] [address] Care Team Providers Care Dry Cleaning Attendant Name Role Phone Scarlet Lane MD Primary Care Provider Unavail Nilam Felix MD Primary Care Provider [phone] Encounter Details Date Type Department Care Team Description 02/15/2016 Final Inspector Truck Trailer Report Medical Records [address] [place] [address] Jalyn Terrell Social History Tobacco Use Types Packs/Day Years [...] on filedocumented in this encounter Care Teams Dry Cleaning Attendant Relationship Specialty Start Date End Date Scarlet Lane MD PCP - General Internal Medicine 08/20/15 01/10/21 Nilam Manning MD [address] [place] [address] PCP - General Internal Medicine 01/11/21 documented as of this encounter
--- OUTSIDE RECORDS SUMMARY | 2025-02-06 14:58 | XMS_ITS | Encounter Summary ---
Author Organization [facility] Address [address] [place] [address] Care Team Providers Care Manager Biostatistics Name Role Phone Nilam Manning MD Primary Care Provider [phone] Reason for Visit * Reason Comments E-prescribe Rx Request Encounter Details Date Type Department Care Team Description 04/15/2022 Refill Adult Medicine [address] [phone] Fatuma Samayoa NP E-prescribe Rx Request Social [...] Telephone Encounter - Lo Deluca M.A. - 04/19/2022 2:21 PM EDT Last office visit 08/19/21 Next office visit 01/09/23 Lab Results Component Value Date NA 141 08/23/2021 K 4.2 08/23/2021 CO2 26 08/23/2021 CL 111 08/23/2021 BUN 11 08/23/2021 CREAT 0.86 08/23/2021 GLU 125 08/23/2021 CA 9.1 08/23/2021 GFR > 60 08/23/2021 Lab Results Component Value Date CHOL 168 08/23/2021 LDL 105 08/23/2021 HDL 43 08/23/2021 TRIG 104 08/23/2021 SGOT 19 08/23/2021 SGPT 34 08/23/2021 * Telephone Encounter - Caron Lamb - 04/19/2022 12:15 PM EDT Patient would like script to be: E-PRESCRIBED/FAXED TO PHARMACY WHEN WAS THE PATIENT'S LAST APPOINTMENT IN ADULT MEDICINE? 08/19/21 WHEN WAS THE LAST TIME THE PATIENT SAW THEIR PCP? Unknown Does patient have an upcoming appointment? Yes 01/09/23 (Called patient and lvm for patient to contact the office and a med review sooner than whats on file.) (THE MEDICATION REQUESTED IS ON THE MED [...] N/A Patients current insurance carrier is: Payor: [facility] / Plan: [facility] MEDICARE COMPLETE $0 [id number] / Product Type: HMO [id number] documented in this encounter Plan of Treatment Not on file documented as of this encounter Visit Diagnoses Not on filedocumented in this encounter Care Teams Manager Biostatistics Relationship Specialty Start Date End Date Nilam Manning MD [address] [place] [address] PCP - General Internal Medicine 01/11/21 documented as of this encounter
[2025-02-07 06:17] LABS: Estimated Average Glucose 128 mg/dL; Hemoglobin A1C 160.1562 umol/L; Hemoglobin A1c % 6.1 % (<6.0); Total Hemoglobin (HGBA1C) 3683.2739 umol/L
== END 2025-02-06 14:05 | disposition home or self-care (01) ==
LOC: HO.WFDLDS 14:04
PROVIDERS: Visit Provider Physician Assistant
DX: R73.03 Prediabetes (principal)
CPT/HCPCS: 36415; 83036

== ENCOUNTER 2025-02-12 08:33 | Outpatient (AMB) | payer OTHER, SELFPAY ==
--- NOTE | 2025-02-12 08:46 | MHC.PC.OV ---
Vital Signs 02/12/25 08:50 Height 5 ft 11 in Weight 209 lb 8 oz BMI 29.2 BP 110/66 Blood Pressure Location Lt brachial Position Sitting Respiration 14 Pulse 64 Pulse Source Pulse Oximeter Pulse Oximetry (%) 95 Oxygen Delivery Method Room Air Intake Visit Reasons: f/u bloodwork Intake Note: Follow up blood work Allergies No Known Allergies Allergy (Verified 02/12/25 08:48) Medication List - Last Reconciled 02/12/25 by Shweta Montano PA-C ascorbic acid (vitamin C) 500 mg PO DAILY aspirin 81 mg PO DAILY atorvastatin 80 mg PO DAILY finasteride 5 mg PO DAILY lisinopril 30 mg PO DAILY omeprazole 20 mg PO DAILY sildenafil 100 mg PO DAILY PRN Tobacco use date assessed: 02/12/25 Fall risk assessment: No Falls in past year Last assessed Fall Risk: 02/12/25 Dental Screening Dental Screen Date: 02/12/25 Did you have a dental visit in the last 12 months?: Yes Did you have a dental problem in the last 6 months where you did not have access to dental care?: No Was dental information given to patient?: Patient has dentist HPI f/u bloodwork HPI Details Pt is a 69 y/o male who presents today for a cpe. He has a hx of ED, GERD, HTN, HLD and prostate ca. He does for today that he has been feeling this lower leg weakness with exertion. He states that it has been gradual over the last couple years but he noticed it more this summer. He states around his yd he will do some stuff and then has to take a break and rest. There is not usually any pain or discomfort with it. He states it almost feels like it is a normal age-related processed. He denies any numbness or tingling. He states his legs just sometimes feel weak or heavy. Sometimes when he is walking on the treadmill he will have a burning sensation in his calf or lower leg and we will feel some discomfort but not all the time. He states it feels almost like it should with building muscle but he is not exactly sure. He denies any back pain, wounds to the feet, decreased sensation, chest pain, shortness on breath, palpitations, or dizziness. He walks every day on the treadmill for at least 10 minutes. He tries to remain active with golfing and [employer] work. Uro: dx with prostate ca 10 years ago and is just monitoring it. following with Dr. Mahoney. He is on sildenafil for ED. CV: bp today is 110/66. He is on lisinopril 30 mg. Cholesterol is managed atorvastatin. GI: He states that his GERD is well-controlled with omeprazole. Endo: Last A1c was 6.1. Heme: follows with heme/onc. B12 has improved. Colonoscopy: 12/29/23- polyps and due in 2028 Former social smoker (smoked while golfing). had AAA screening which was negative [facility] Family History Mother Hypertension High cholesterol Cancer Father Hypertension High cholesterol Mother High cholesterol Father High cholesterol Diabetes Father Diabetes Cancer Other Asthma Social History (Updated 02/12/25 @ 08:53 by Henna Song CMA) Household Members: Spouse Housing: House Alcohol intake: current Patient Tobacco Use Status: Former Tobacco user Cigarette Packs Per Day: 0.25 Years Smoked: 40 Packs Per Year: 10 e-Cigarette/Vaping Use: Never Used Second Hand Smoke Exposure: Yes (past) Use of substances other than those prescribed or required for medical reasons: Yes Substance Use Type: Marijuana service: No Current occupational status: retired Gender identity: Male Cognitive needs: No Hearing needs: No Vision needs: No Questionnaire PHQ-9 Over the last 2 weeks, how often have you been bothered by any of the following problems? 1. Little interest or pleasure in doing things: not at all 2. Feeling down, depressed, or hopeless: not at all 3. Trouble falling or staying asleep, or sleeping too much: several days 4. Feeling tired or having little energy: several days 5. Poor appetite or overeating: not at all 6. Feeling bad about yourself - or that you are a failure or have let yourself or your family down: not at all 7. Trouble concentrating on things, such as reading the newspaper or watching television: not at all 8. Moving or speaking so slowly that other people could have noticed. Or the opposite - being so fidgety or restless that you have been moving around a lot more than usual: not at all 9. Thoughts that you would be better off or of hurting yourself in some way: not at all Total score: 2 Depression Screening Interpretation: Negative Depression Screening Done: Yes 05120 - PHQ-9 Billing: Yes Source: Developed by Drs. Fili Frausto, Lisa Marcial, Juan Manuel Kirk and colleagues, with an educational chuck from [employer]. Thrive Questionnaire Date Thrive assessed: 02/12/25 I am a: Patient What is your living situation today?: I have a steady place to live Within the past 12 months, did the food you bought not last and you didn't have the money to get more?: Never true Within the past 12 months, did you worry whether your food would run out before you got money to buy more?: Never true Do you have trouble paying for medicines?: No Do you have trouble getting transportation to medical appointments?: No Do you have trouble paying your heating and electricity bill?: No Do you have trouble taking care of your child, family member or friend?: No Do you have trouble with day-to-day activities such as bathing, preparing meals, shopping, managing finances, etc.?: No Are you currently unemployed and looking for a job?: No Are you interested in more education?: No Please select the resources that you would like help with: None Currently or been in a relationship where the following occur: No concerns reported THRIVE Score: 0 AUDIT C Alcohol Use Questionnaire (AUDIT-C) 1. How often do you have a drink containing alcohol?: 2-3 times a week 2. How many drinks containing alcohol do you have on a typical day when you are drinking?: 1 or 2 3. How often do you have six or more drinks on one occasion?: Never Total Score: 3 WILLIAM-7 AMB Questionnaire WILLIAM-7 Date WILLIAM - 7 assessed: 02/12/25 Feeling nervous, anxious, or on edge: 0 = Not at all Not being able to stop or control worryin = Several days Worrying too much about different things: 1 = Several days Trouble relaxin = Not at all Being so restless that it is hard to sit still: 0 = Not at all Becoming easily annoyed or irritable: 1 = Several days Feeling afraid as if something awful might happen: 0 = Not at all Total WILLIAM-7 score (0-4 normal; 5-9 mild; 10-14 moderate; 15-21 severe): 3 Source: Developed by Drs. Fili Frausto, Lsia Marcial, Juan Manuel Kirk and colleagues, with an educational chuck from [employer]. WILLIAM-7 Assessment Billing WILLIAM-7 Assessment Tool: WILLIAM-7 Assessment 67574 Physical exam (Primary Care) Vital Signs: Last Vital Signs Pulse 64 02/12/25 08:50 Resp 14 02/12/25 08:50 BP 110/66 02/12/25 08:50 Pulse Ox 95 02/12/25 08:50 Oxygen Delivery Method Room Air 02/12/25 08:50 BMI result Body Mass Index 29.2 Tobacco/Smoking Status: Tobacco use Status Tobacco use date assessed 02/12/25 02/12/25 08:53 Patient Tobacco Use Status Former Tobacco user 02/12/25 08:53 e-Cigarette/Vaping Use Never Used 02/12/25 08:53 PHQ-9: PHQ-9 Score PHQ-9: Total score 2 02/12/25 09:03 Depression Screening Interpretation: Negative Thrive Assessment: Date of Thrive Assessment Date Thrive assessed 02/12/25 02/12/25 08:53 Currently or been in a relationship where the following occur: No concerns reported Const Orientation/consciousness: patient oriented x3 HENMT Ears: hearing grossly normal bilaterally Neck Thyroid: Thyroid normal Lymphatic: no lymphadenopathy noted Resp Auscultation: clear to auscultation bilaterally Cardio Rate: regular rate Rhythm: regular rhythm Heart sounds: S1 normal heart sound present and S2 normal heart sound present GI Inspection: Yes normal to inspection Palpation (GI): Soft to palpation and Other GI palpation findings present (nontender, no cva tenderness) Auscultation: normoactive bowel sounds Rectal Exam - Male: Yes deferred General: Yes no CVA tenderness Back/Spine/Pelvis Back: no CVA tenderness Thoracic/Lumbar Spine: thoracic and lumbar spine normal to inspection and straight leg raise negative bilaterally Skin General skin exam: no rashes or lesions noted Neuro General: patient oriented x3, gait normal and no focal motor deficits Extrem Other: DP pulse on the right is 2+, DP pulse on the left is 1+. Good capillary refill bilaterally. Strength intact. DTRs intact. Skin intact. No calf pain. Legs are symmetrical. Vibratory and light sensation intact to the lower extremities. General: Yes normal to inspection Coding Level of Care Code Est Pt Level 4 (17588) Complex EM visit Add On G2211 Diagnoses Primary hypertension I10 Hypertension type: primary hypertension Mixed hyperlipidemia E78.2 Hyperlipidemia type: mixed hyperlipidemia Prediabetes R73.03 Anemia D64.9 Prostate CA C61 Leg weakness, bilateral R29.898 Additional Codes WILLIAM-7 Assessment Billing - WILLIAM-7 Assessment Tool: WILLIAM-7 Assessment 65497 ([id number]) PHQ-9 - 54373 - PHQ-9 Billing: Yes ([id number]) Assessment & Plan Assessment & Plan (1) Hypertension: Code(s): I10 - Essential (primary) hypertension Category: Medical Qualifiers: Hypertension type: primary hypertension Qualified Code(s): I10 - Essential (primary) hypertension Plan: Well-controlled. Continue current regimen (2) Hyperlipidemia: Code(s): E78.5 - Hyperlipidemia, unspecified Category: Medical Qualifiers: Hyperlipidemia type: mixed hyperlipidemia Qualified Code(s): E78.2 - Mixed hyperlipidemia Plan: We will continue to monitor continue atorvastatin (3) Prediabetes: Code(s): R73.03 - Prediabetes Category: Medical Plan: We did review that his A1c did increase slightly. He is going to watch his diet. (4) Anemia: Code(s): D64.9 - Anemia, unspecified Category: Medical Plan: Has follow up in 6 months with Hematology (5) Prostate CA: Code(s): C61 - Malignant neoplasm of prostate Category: Medical Plan: following with Dr. Mahoney (6) Leg weakness, bilateral: Code(s): R29.898 - Other symptoms and signs involving the musculoskeletal system Category: Medical Plan: ? Neurogenic claudication. Back imaging ordered. Advised patient to work on daily stretching and strengthening. I did offer referral to PT but declines. ? PAD He does report vague calf discomfort with walking on the treadmill and he does have a week or pulse on the left when compared to the right. ref to vasc We did also review the possibility of deconditioning Orders: Orders TSH reflex Free T4 02/12/25 D64.9 - Anemia, unspecified, E78.2 - Mixed hyperlipidemia, I10 - Essential (primary) hypertension, R73.03 - Prediabetes Comprehensive Met. Panel 02/12/25 D64.9 - Anemia, unspecified, E78.2 - Mixed hyperlipidemia, I10 - Essential (primary) hypertension, R73.03 - Prediabetes Lipid Panel 02/12/25 D64.9 - Anemia, unspecified, E78.2 - Mixed hyperlipidemia, I10 - Essential (primary) hypertension, R73.03 - Prediabetes Hemoglobin A1c 02/12/25 D64.9 - Anemia, unspecified, E78.2 - Mixed hyperlipidemia, I10 - Essential (primary) hypertension, R73.01 - Impaired fasting glucose, R73.03 - Prediabetes XR lumbar spine 2-3V Today M54.50 - Low back pain, unspecified Referrals Vascular Surgery Referral I73.9 - Peripheral vascular disease, unspecified Medications: Refilled sildenafil 100 mg PO DAILY PRN 30 tabs 6RF sexual activity
[2025-02-12 08:50] VITALS: BP 110/66; PULSE 64; RESP 14; O2SAT 95; BMI 29.2
== END 2025-02-12 14:51 | disposition home or self-care (01) ==
LOC: HO.HMCFM 08:34
PROVIDERS: PCP Physician Assistant; Visit Provider Physician Assistant
DX: I10 Essential (primary) hypertension (principal); C61 Malignant neoplasm of prostate; E78.2 Mixed hyperlipidemia; R73.03 Prediabetes; D64.9 Anemia, unspecified; R29.898 Other symptoms and signs involving the musculoskeletal system

== ENCOUNTER → 2025-02-12 08:33 | Outpatient (BNVA) | payer MEDICARE, SELFPAY | PROVIDERS: PCP Physician Assistant; Visit Provider Physician Assistant | DX: I10 Essential (primary) hypertension (principal); E78.2 Mixed hyperlipidemia; R73.03 Prediabetes; D64.9 Anemia, unspecified; R29.898 Other symptoms and signs involving the musculoskeletal system | CPT/HCPCS: 96127 ==

== ENCOUNTER 2025-03-06 09:20 | Outpatient (AMB) | payer OTHER, SELFPAY ==
--- NOTE | 2025-03-06 09:30 | MHC.OFFVIS ---
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 States some burning in calves after 10 mins on treadmill, but no cramping. 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 He was referred to the vascular surgery clinic following observations by two physician assistants of disparate blood pressure readings in his legs, with one leg having a lower measurement. Despite these observations, he denies experiencing claudication or walking difficulties. He has maintained his ability to walk nine holes of golf without any problem, although he experiences fatigue after 18 holes. His medical history includes smoking cessation approximately seven to eight years ago, and he is classified as pre-diabetic with a recent HbA1c level of 6.1%. The patient does not report any progressive symptoms that impact his functional status which remains high. He is being maintained on aspirin and high-dose statin. He now presents for vascular evaluation. [facility] Family History Mother Hypertension High cholesterol Cancer Father Hypertension High cholesterol Mother High cholesterol Father High cholesterol Diabetes Father Diabetes Cancer Other Asthma Social History Household Members: Spouse Housing: House Alcohol intake: current Patient Tobacco Use Status: Former Tobacco user Cigarette Packs Per Day: 0.25 Years Smoked: 40 e-Cigarette/Vaping Use: Never Used Second Hand Smoke Exposure: Yes (past) Substance Use Type: Marijuana service: No Current occupational status: retired Gender identity: Male Cognitive needs: No Hearing needs: No Vision needs: No Review of Systems Const All systems reviewed & are unremarkable except as noted in HPI and below Reports no additional complaints ENT Reports Normal hearing present Card Denies chest pain, Denies chest pain at rest, Denies chest pain with activity and Denies pedal edema Resp Denies cough GI Denies abdominal pain Musc Denies abnormal gait, Denies muscle cramps and Denies radiating pain into limb Skin/Breast Denies skin ulcer and Denies wounds Neuro Reports Normal hearing present and Denies abnormal gait Psych Reports no additional complaints Physical Exam Vital Signs: BMI result Body Mass Index 29.1 Const General: cooperative, healthy appearing and comfortable Orientation/consciousness: oriented to person, oriented to place and oriented to time HEENT Head: Yes normal to inspection Neck Neck: Yes normal visual inspection Carotids: no bruits Chest Chest palpation & inspection: normal inspection of the chest Resp Effort & Inspection: normal respiratory effort and able to speak in complete sentences Auscultation: clear to auscultation bilaterally, no crackles, no rales, no rhonchi and no wheezes Cardio Other: Faintly palpable bilateral posterior tibial pulses Rate: regular rate Rhythm: regular rhythm Heart sounds: S1 normal heart sound present and S2 normal heart sound present Bruits: no carotid bruits Peripheral pulses: Peripheral pulses 2+ throughout GI Inspection: Yes normal to inspection Skin Wounds: no wounds Hair: normal Neuro General: oriented to person, oriented to place and oriented to time Cranial nerves: Yes CN's II-XII intact bilaterally and Yes Normal hearing present Cognition (Neuro): normal cognition Motor exam (neuro): 5/5 motor strength present throughout Extrem Other: venous exam: No significant superficial varicosities or spider telangiectasias, minimal edema General: No clubbing, No cyanosis and No edema Psych Appearance: grossly normal Mental Status: mental status grossly normal Speech and movement: Normal speech and movement present Assessment & Plan Assessment & Plan (1) PAD (peripheral artery disease): Code(s): I73.9 - Peripheral vascular disease, unspecified Category: Medical Plan: Due to his longstanding history of smoking which he quit several years ago I have taken the liberty of ordering noninvasive arterial testing. At the current time he is a very mild claudication. He does not demonstrate activity limiting claudication. We did discuss routine risk factor modification and I did indicate to him that we will manage this as conservatively as possible. He will follow up with us after testing. Thank you for allowing us to assist in his care. If there are any questions or concerns please do not hesitate to contact us. Orders: Orders US arterial duplex LE BI 1 Week I73.9 - Peripheral vascular disease, unspecified Coding Level of Care Code New Pt Level 4 (45271) Complex EM visit Add On G2211 Diagnoses PAD (peripheral artery disease) I73.9
[2025-03-06 09:32] VITALS: BMI 29.1
--- OUTSIDE RECORDS SUMMARY | 2025-03-06 10:12 | XMS_ITS | Encounter Summary ---
Author Organization [facility] Address [address] [place] [address] Care Team Providers Care Line Installer Trolley Name Role Phone Scarlet Lane MD Primary Care Provider Brittani Nilam Felix MD Primary Care Provider [phone] Encounter Details Date Type Department Care Team Description 08/10/2017 Grading Supervisor Report Medical Records [address] [place] [id number] Abstract, Provider Social History Tobacco Use Types [...] on filedocumented in this encounter Care Teams Line Installer Trolley Relationship Specialty Start Date End Date Scarlet Lane MD PCP - General Internal Medicine 08/20/15 01/10/21 Nilam Manning MD [address] [place] [id number] PCP - General Internal Medicine 01/11/21 documented as of this encounter
== END 2025-03-06 10:34 | disposition home or self-care (01) ==
LOC: HO.HVS 09:21
PROVIDERS: PCP Physician Assistant; Visit Provider Surgery Vascular Surgery
DX: I73.9 Peripheral vascular disease, unspecified (principal)
CPT/HCPCS: 99204

== ENCOUNTER → 2025-03-06 09:20 | Outpatient (BNVA) | payer MEDICARE, SELFPAY | PROVIDERS: PCP Physician Assistant; Visit Provider Surgery Vascular Surgery | DX: Z13.89 Encounter for screening for other disorder (principal) ==

== ENCOUNTER 2025-04-24 09:54 | Outpatient (REF) | payer MEDICARE, SELFPAY ==
--- NOTE | ~2025-04-24 | US_ITS ---
EXAMINATION: US NONINVASIVE ASSESSMENT OF THE BILATERAL LOWER EXTREMITY WITH ARTERIAL DUPLEX AND ANKLE BRACHIAL INDICES (ABIS) CLINICAL INFORMATION: Peripheral vascular disease, unspecified. COMPARISON: None available. TECHNIQUE: Duplex Doppler techniques with waveform analysis and measurement of velocities in the common femoral, profunda femoris, superficial femoral, popliteal and tibial arteries were performed. In addition, ankle pulse volume recordings, ankle pressure measurements and ankle brachial indices were obtained of the bilateral lower extremity arterial system. The study was performed only at rest. FINDINGS: NONINVASIVE ASSESSMENT OF THE ARTERIES OF BILATERAL LOWER EXTREMITIES WITH ABIs: RIGHT LEG: Ankle-brachial index: 1.33 Segmental pressures: PT: 201 DP: 200 PVR waveforms: Triphasic, normal. LEFT LEG: Ankle-brachial index: 1.32 Segmental pressures: PT: 200 DP: 200 PVR: Triphasic, normal. RHINA Reference: 0.9 - 1.4 = normal - no significant arterial disease 0.7 - 0.89 = mild peripheral arterial disease 0.51 - 0.69 = moderate peripheral arterial disease 0.50 = severe peripheral arterial disease Atheromatous Plaque: Mild scattered atheromatous plaque. RIGHT FEMORAL RUNOFF VELOCITIES: The right common femoral artery measures 83 cm/s and triphasic. The right profunda femoral artery is 50.4 cm/s and is biphasic. The right proximal superficial femoral artery measures 66.3 cm/s and triphasic. The right mid superficial femoral artery is 75.1 cm/s and triphasic. The right distal right superficial femoral artery measures 53.7 cm/s and is triphasic. The right popliteal velocity measures 67.4 cm/s and is triphasic. The right posterior tibial artery velocity measures 97.9 cm/s and is triphasic. The right peroneal artery velocity measures 52.8 cm/s and is triphasic. The right anterior tibial artery velocity measures 37.8 cm/s and is triphasic. The right DPA is patent. LEFT FEMORAL RUNOFF VELOCITIES: The left common femoral artery measures 58.5 cm/s and is biphasic. The left profunda femoral artery is 42.5 cm/s and is biphasic. The left proximal superficial femoral artery measures 72 cm/s and biphasic. The left mid superficial femoral artery is 103.6 cm/s and triphasic. The left distal right superficial femoral artery measures 76.6 cm/s and is triphasic. The left popliteal velocity measures 60.4 cm/s and is triphasic. The left posterior tibial artery velocity measures 106.7 cm/s and is triphasic. The left peroneal artery velocity measures 48.3 cm/s and is triphasic. The left anterior tibial artery velocity measures 27.9 cm/s and is triphasic. The left DPA is patent. US/US arterial duplex BI w/ RHINA IMPRESSION: 1. Essentially normal peripheral arterial testing with velocity measurements. Scattered mild calcified atherosclerotic disease is present. Electronically signed by: Juan Cruz MD 04/24/2025 01:17 PM EDT RP
--- OUTSIDE RECORDS SUMMARY | 2025-04-24 10:38 | XMS_ITS | Clinical Summary ---
Author Organization [facility] it Address [address] [place] [address] Care Team Providers Care Ski Patrol Officer Name Role Phone Nilam Manning MD Primary Care Provider [phone] Allergies Active Allergy Reactions Criticality Noted Date Comments Other 03/17/2009 Seasonal allergies Medications calcium carbonate/vitam in D3 (CALCIUM 600 + D,3, ORAL) qd 7 Active ascorbic acid (VITAMIN C) 1,000 mg tablet Take 500 mg by mouth. Active aspirin 81 mg EC tablet 1 TABLET DAILY Activ e atorvastatin (LIPITOR) 80 mg tablet Take 1 Tablet by mouth daily. 4 Active bisacodyL (DULCOLAX) 5 mg EC tablet Take 2 tabs by mouth right before beginning bowel prep. Follow instructions given by office for timing. 4 Active famotidine (PEPCID) 20 mg tablet TAKE 1 TABLET BY MOUTH TWICE DAILY NEEDED FOR HEARTBURN 2 Active finasteride (PROSCAR) 5 mg tablet Take 1 Tablet by mouth daily. 4 Active lisinopriL (PRINIVIL,ZESTR IL) 30 mg tablet Take 1 Tablet by mouth daily. 4 Active omeprazole (PriLOSEC) [address] capsule Take 1 Capsule by mouth daily. 4 Active sildenafiL (VIAGRA) 100 mg tablet TAKE 1 TABLET BY MOUTH 1 HOUR PRIOR TO SEXUAL INTERCOURSE 4 Active Active Problems Problem Noted Date Diagnosed Date Polyp of colon 01/01/2024 Overview (09/20/2024): Per GI reported during recent colonoscopy December 2023, multiple in cecum and rectum. GI would determine next surveillance colonoscopy Atypical chest pain 11/09/2020 Overview (09/20/2024): Nonproductive stress test recommending stress echo in October 2020. Patient declined stress echo. Patient declined follow-up with cardiology. He was made aware of the risks of not pursuing further cardiac work-up including undiagnosed cardiovascular disease which can lead to OR, CVA and adverse medical complication including but not limited to . Prediabetes 09/02/2015 Prostate cancer ([facility], [facility] V28) 12/26 Overview (09/20/2024): Sees urology group of [facility] BPH (benign prostatic hyperplasia) 10/23/2012 Overview (09/20/2024): Psa 4.4 10/14 - start finasteride Diverticulitis of colon without hemorrhage 07/20 Overview (09/20/2024): Incidental finding at colonoscopy 07/20/2012. GERD (gastroesophageal reflux disease) 2 Overview (09/20/2024): Normal EGD on PPI rx 07/20/2012. Erectile dysfunction 07/16/2009 Essential hypertension, benign 09/22/2006 Overweight 07/25/2006 Pure hypercholesterolemia 07/25/2006 Encounters Date Type Department Care Team Description 03/12/2025 Telephone Adult Medicine [address] [address] Nilam Manning MD called patient from Last 3 Months Immunizations Name Administration Dates Next Due H1N1 Inj Preservative Free 10/16/2009 Influenza Quadravalent, MDCK , 0.5ml, preservative free (Flucelvax) 6mo and older 10/18/2019,09/05/2018 Influenza Quadravalent, MDCK , 0.5ml, with preservative (Flucelvax) 6mo and older 08/28/2017 Influenza trivalent, 0.5mL, preservative free (Fluarix; FluLaval; Fluzone) ages 6mo and older (Afluria) 3 years and older 09/08/2016,09/02/2015,08/26/2014,08/13,07/16/2012,07/18/2011,08/03/2010 ,09/23/2009,10/13/2008 Pneumococcal conjugate 13 va lent (Prevnar 13, PCV13) 2mo and older 02/26/2015 Pneumococcal polysaccharide 23 valent (Pneumovax 23) 2yo and older 10/13/2008 Td Tetanus diptheria (Tdvax) 7yo and older 09/05/2018,05/04/2000 Tdap Tetanus diptheria acell ular pertussis (Boostrix; Adacel) 7yo and older 08/18/2008 Surgical History Surgery Date Site/Laterality Comments OTHER SURGICAL HISTORY 2004 PROCEDURE: [place] CLTX DSTL XTNSR TDN INSJ W/WO PERCUTAN PINNING; COMMENT: RIGHT 3RD DORSAL OTHER SURGICAL HISTORY 2001 PROCEDURE: REMOVAL OF RECTAL LESION; COMMENT: fibroepithelial tag. COLONOSCOPY 04/02 PROCEDURE: NV COLONOSCOPY STOMA DX INCLUDING COLLJ SPEC SPX; COMMENT: negative except for internal tag (subsequently removed) COLONOSCOPY 07/20/2012 PROCEDURE: NV COLONOSCOPY FLX DX W/COLLJ SPEC WHEN PFRMD; COMMENT: minimal diverticulosis ESOPHAGOGASTRODUODENOSCOPY 07/20/2012 PROCEDURE: NV ESOPHAGOGASTRODUODENOSCOPY TRANSORAL DIAGNOSTIC; COMMENT: normal on PPI rx Medical History Medical History Date Comments Pure hypercholesterolemia 07/25/2006 DX:Pur e hypercholesterolemia Overweight(278.02) 07/25/2006 DX:Overweight (278.02) Tobacco use disorder 09/22/2006 DX:Tobacco use disorder Type II or unspecified type diabetes mellitus without mention of complication, not stated as uncontrolled 08/19/2008 DX:Type II or unspecified ty pe diabetes mellitus without mention of complication, not stated as uncontrolled Essential hypertension, benign 09/22/2006 D X:Essential hypertension, benign GERD (gastroesophageal reflu x disease) 07/20/2012 DX:GERD (gastroesophageal re flux disease) Diverticulosis of colon (wit hout mention of hemorrhage) 07/20/2012 DX:Diverticulosis of colon ( without mention of hemorrhage) BPH (benign prostatic hyperplasia) 10/23/2012 DX:BPH (benign prostatic hyperplasia) Prostate cancer ([facility] , [facility] V28) 12/26/2013 DX:Prostate cancer (HCC) Diet-controlled type 2 diabe joe mellitus ([facility]/HCC V24, CMS/HCC V28) 09/02/2015 DX:Diet-controlled type 2 diabetes mellitus (HCC) Family History Medical History Relation Name Comments No Known Problems Aunt No Known Problems Brother 1 No Known Problems Brother 2 Cataracts Father Diabetes Father Hyperlipidemia Father Prostate cancer Father No Known Problems Maternal Grandfather No Known Problems Maternal Grandmother Other cancer Mother RENAL Stroke Mother passed 08/2017 No Known Problems Other No Known Problems Paternal Grandfather No Known Problems Paternal Grandmother No Known Problems Sister 1 No Known Problems Sister 2 No Known Problems Sister 3 No Known Problems Uncle Blindness Neg Hx Glaucoma Neg Hx Macular degeneration Neg Hx Strabismus Neg Hx Relation Name Status Comments Aunt Brother [...] Years Used Date Smoking Tobacco: Former Cigarettes Q uit: 07/09/2016 Smokeless Tobacco: Former Alcohol Use Standard Drinks/Week Comments Yes 0 (1 standard drink = 0.6 oz pur e alcohol) Sex and Gender Information Value Date Recorded Sex Assigned at Not on file Legal Sex Male 5:23 PM EST Gender Identity Not on file Sexual Orientation Not on file Obstetrics History Last Filed Vital Signs Vital Sign Reading Time Taken Comments Blood Pressure 122/70 12/26/2023 8:41 AM EDT Pulse 70 12/26/2023 8:41 AM EDT Temperature - - Respiratory Rate - - Oxygen Saturation - - Inhaled Oxygen Concentration - - Weight 93 kg (205 lb) 12/26/2023 8:41 AM EDT Height 180.3 cm (5' 11 ) 12/26/2023 8:41 AM EDT Body Mass Index 28.59 12/26/2023 8:41 AM EDT Plan of Treatment Health Maintenance Due Date Last Done Comments Zoster Vaccines (1 of 2) 1974 Pneumococcal Vaccine: 50+ Years (3 of 3 - PPSV23, PCV20 or PCV21) 04/23/2015 02/26/2015, 10/13/2008 COVID-19 Vaccine (3 - Pfizer risk series) 02/13/2021 01/16/2021, 12/26/2020 Falls Risk Assessment 09/10/2022 Social Influencers of Health Screening 09/10/2022 Depression Screening 10/02/2024 Hypertension/CHF/CAD Annual BMP Blood Test 12/21/2024 12/22/2023 Influenza Vaccine (#1) 2025 , 09/05/2018, 08/28/2017, Additional history exists DTaP,Tdap,and Td Vaccines (4 - Td or Tdap) 09/05/2028 09/05/2018, 08/18/2008, 05/04/2000 Cholesterol Screening (Lipid Panel) 12/21/2028 12/22/2023 Colorectal Cancer Screening: Colonoscopy 12/28/2028 12/29/2023 RSV Immunization Adult Patients (1 - 1-dose 75+ series) 2030 Hepatitis C Screening Completed 05/10/2013 Abdominal Aortic Aneurysm (AAA) Screen Completed 02/20/2023, 02/20/2023 HIB Vaccines Aged Out No longer eligi ble based on patient's age to complete this topic HPV Vaccines Aged Out No longer eligi ble based on patient's age to complete this topic Hepatitis A Vaccines Aged Out No long er eligible based on patient's age to complete this topic Hepatitis B Vaccines Aged Out No long er eligible based on patient's age to complete this topic IPV Vaccines Aged Out No longer eligi ble based on patient's age to complete this topic MMR Vaccines Aged Out No longer eligi ble based on patient's age to complete this topic Meningococcal ACWY Vaccine Aged Out N o longer eligible based on patient's age to complete this topic Meningococcal B Vaccine Aged Out No l onger eligible based on patient's age to complete this topic RSV Immunization Patients Under 20 months Aged Out No longer eligible based on patient's age to complete this topic Varicella Vaccines Aged Out No longer eligible based on patient's age to complete this topic Procedures Procedure Name Priority Date/Time Associated Diagnosis Comments COLONOSCOPY Routine 12/29/2023 ANNUAL BMP BLOOD TEST Routine 12/22/2023 LIPID PANEL Routine 12/22/2023 US ABDOMINAL AORTA REAL TIME SCREEN STUDY AAA Routine 02/20/2023 8:46 AM EDT Encounter for general adult medical examination without abnormal findings HEPATITIS C SCREENING Routine 05/10/2013 from Last 3 Months or Most Recently Relevant to Health Maintenance Results * Colonoscopy (12/29/2023) Colonoscopy No interpreta tion,abstr acted Anatomical Region Laterality Modality Other [facility] Provider HEALTH MAINTENANCE Final Result * Annual BMP Blood Test (12/22/2023) Annual BMP Blood Test abstracted [facility] Provider HEALTH MAINTENANCE Final Result * (ABNORMAL) Lipid panel (12/22/2023) LDL/HDL Ratio 4 0 - 4 Triglycerides 101 0 - 150 mg/dL Cholesterol 184 0 - 200 mg/dL HDL 45 >=40 mg/dL LDL Cholesterol 119(A) 0 - 100 mg/dL Blood Venous blood specimen / Unknown Historical Provider LAB BLOOD ORDERABLES Abena l Result * US ABDOMINAL AORTA REAL TIME SCREEN STUDY AAA (02/20/2023 8:46 AM EDT) Anatomical Region Laterality Modality Ultrasound 01/09/2023 9:25 AM EDT Narrative 02/20/2023 10:20 AM EDT Ultrasound of the abdominal aorta. History screening for AAA. There is no evidence of abdominal aortic aneurysm. Proximal aorta measures 2.3 cm, mid aorta measures 2 cm, distal aorta measures 2 cm. Proximal common iliac arteries measure 1.3 cm each. CONCLUSIONS: No evidence of AAA. Procedure Note Angeline Saucedo MD - 11/06/2023 Ultrasound of the abdominal aorta. History screening for AAA. There is no evidence of abdominal aortic aneurysm. Proximal aortameasures 2.3 cm, mid aorta measures 2 cm, distal aorta measures 2 cm. Proximal common iliac arteriesmeasure 1.3 cm each. CONCLUSIONS: No evidence of AAA. us Nilam Manning MD IMG US PROCEDURES Final Result * Hepatitis C Screening (05/10/2013) Hepatitis C Screening abstracted Historical Provider HEALTH MAINTENANCE Final Result from Last 3 Months or Most Recently Relevant to Health Maintenance Care Teams Ski Patrol Officer Relationship Specialty Start Date End Date Nilam Manning MD [address] [place] [id number] PCP - General Internal Medicine 01/11/21
== END 2025-04-24 09:55 | disposition home or self-care (01) ==
LOC: HO.US 09:54
PROVIDERS: PCP Physician Assistant; Visit Provider Surgery Vascular Surgery
DX: I73.9 Peripheral vascular disease, unspecified (principal)
CPT/HCPCS: 93922; 93925

== ENCOUNTER → 2025-04-24 09:57 | Outpatient (BNV) | payer MEDICARE, SELFPAY | PROVIDERS: PCP Physician Assistant; Visit Provider Radiology Diagnostic Radiology | DX: I73.9 Peripheral vascular disease, unspecified (principal) | CPT/HCPCS: 93922; 93925 ==

== ENCOUNTER 2025-06-12 15:46 | Outpatient (REF) | payer MEDICARE, SELFPAY ==
[2025-06-12 17:33] LABS: Hematocrit 38.8 % (42.0-52.0); Hemoglobin 13.3 g/dl (14.0-18.0); Mean Corpuscular HGB Conc 34.3 g/dl (31.0-36.0); Mean Corpuscular Hemoglobin 30.2 pg (27.0-33.0); Mean Corpuscular Volume 88.0 fL (80.0-98.0); NRBC Abs Auto 0.000 X10*3/uL (0.0-0.012); NRBC Pct Auto 0.0 /100WBC (0.0-0.2); Platelet Count 179 X10*3/uL (160-400); Red Blood Count 4.41 X10*6/uL (4.60-5.80); White Blood Count 7.1 X10*3/uL (4.8-10.8)
[2025-06-12 17:56] LABS: Alanine Aminotransferase 24 U/L (0-40); Albumin Level 4.3 g/dL (3.5-5.0); Alkaline Phosphatase 72 U/L (39-117); Anion Gap 13 (12-20); Aspartate Amino Transferase 26 U/L (5-37); Blood Urea Nitrogen 16 mg/dL (9-16); Calcium 8.8 mg/dL (8.4-10.2); Carbon Dioxide 22 mmol/L (22-29); Chloride 112 mmol/L (96-108); Estimated Glomerular Filt Rate > 60; Potassium 4.3 mmol/L (3.3-5.1); Sodium 143 mmol/L (135-145); Total Protein 6.5 g/dL (6.5-8.0)
[2025-06-13 10:08] LABS: Kappa/Lambda Lt Ch Free Ratio 1.31 (0.26-1.65)
== END 2025-06-12 15:47 | disposition home or self-care (01) ==
LOC: HO.WFDLDS 15:46
PROVIDERS: Visit Provider Internal Medicine
DX: D64.9 Anemia, unspecified (principal)
CPT/HCPCS: 36415; 80053; 82784; 83521; 85027; 86334

== ENCOUNTER 2025-06-17 09:48 | Outpatient (AMB) | payer MEDICARE, SELFPAY ==
[2025-06-17 10:10] VITALS: BMI 29.1
--- NOTE | 2025-06-17 10:10 | MHC.OFFVIS ---
Vital Signs 06/17/25 10:10 Height 5 ft 11 in Weight 209 lb BMI 29.1 Intake Visit Reasons: follow up s/p Arterial US 04/24/25 Intake Note: follow up Arterial US 04/24/25 s/p at home RHINA test. Pt states he does not get cramping and can walk about 10 mins before he feels some burning in his legs. International Student Advisor Required: No Accompanied by: Self / Same As Patient Allergies No Known Allergies Allergy (Verified 06/17/25 10:12) HPI HPI follow up s/p Arterial US 04/24/25: Details: The patient is a 69-year-old male presenting for follow-up after arterial testing. The patient reports being able to walk a block without difficulty and plays nine holes of golf without using a cart, although he uses a cart for 18 holes recently. He previously walked 18 holes until a couple of years ago. The patient's arterial testing results were satisfactory, with the physician expressing satisfaction with the numbers. The patient is aware of his prediabetic status, with a previous hemoglobin A1c of 6.1, but is not currently on any medication for diabetes. The patient is actively working on weight management and is on a yearly follow-up cycle for ultrasound screening. [facility] Family History Mother Hypertension High cholesterol Cancer Father Hypertension High cholesterol Mother High cholesterol Father High cholesterol Diabetes Father Diabetes Cancer Other Asthma Social History Household Members: Spouse Housing: House Alcohol intake: current Patient Tobacco Use Status: Former Tobacco user Cigarette Packs Per Day: 0.25 Years Smoked: 40 e-Cigarette/Vaping Use: Never Used Second Hand Smoke Exposure: Yes (past) Substance Use Type: Marijuana service: No Current occupational status: retired Gender identity: Male Cognitive needs: No Hearing needs: No Vision needs: No Review of Systems Const All systems reviewed & are unremarkable except as noted in HPI and below Reports no additional complaints ENT Reports Normal hearing present Card Denies chest pain, Denies chest pain at rest, Denies chest pain with activity and Denies pedal edema Resp Denies cough GI Denies abdominal pain Musc Denies abnormal gait, Denies muscle cramps and Denies radiating pain into limb Skin/Breast Denies skin ulcer and Denies wounds Neuro Reports Normal hearing present and Denies abnormal gait Psych Reports no additional complaints Physical Exam Vital Signs: BMI result Body Mass Index 29.1 Const General: cooperative, healthy appearing and comfortable Orientation/consciousness: oriented to person, oriented to place and oriented to time HEENT Head: Yes normal to inspection Neck Neck: Yes normal visual inspection Carotids: no bruits Chest Chest palpation & inspection: normal inspection of the chest Resp Effort & Inspection: normal respiratory effort and able to speak in complete sentences Auscultation: clear to auscultation bilaterally, no crackles, no rales, no rhonchi and no wheezes Cardio Rate: regular rate Rhythm: regular rhythm Heart sounds: S1 normal heart sound present and S2 normal heart sound present Bruits: no carotid bruits Peripheral pulses: Peripheral pulses 2+ throughout GI Inspection: Yes normal to inspection Skin Wounds: no wounds Hair: normal Neuro General: oriented to person, oriented to place and oriented to time Cranial nerves: Yes CN's II-XII intact bilaterally and Yes Normal hearing present Cognition (Neuro): normal cognition Motor exam (neuro): 5/5 motor strength present throughout Extrem Other: venous exam: No significant superficial varicosities or spider telangiectasias, minimal edema General: No clubbing, No cyanosis and No edema Psych Appearance: grossly normal Mental Status: mental status grossly normal Speech and movement: Normal speech and movement present Results Reviewed Results Reviewed: Noninvasive testing dated 04/24/2025 demonstrates RHINA on the right of 1.3 and on the left of 1.[address] waveforms all the way down. Written report and images were reviewed. Assessment & Plan Assessment & Plan (1) PAD (peripheral artery disease): Code(s): I73.9 - Peripheral vascular disease, unspecified Category: Medical Plan: In short patient has stable claudication. I did review the pathophysiology of peripheral vascular disease with the patient. In addition we did discuss routine conservative measures including a healthy diet and the importance of exercise and ambulation. We did discuss risk factor modification. The patient will continue to to follow-up with surveillance follow-up in approximately 1 year. Thank you for allowing us to participate in this patient's care. If there are any questions or concerns please do not hesitate to contact us. Plan Patient was informed and verbally consented to the use of an ambient scribe for clinic note documentation during this visit. Orders: Orders US arterial duplex LE BI 1 Year I73.9 - Peripheral vascular disease, unspecified Patient Instructions: - Continue regular physical activity, such as walking and playing golf. - Monitor blood sugar levels and maintain a healthy diet to manage prediabetes. - Return for an annual ultrasound screening to monitor vascular health. Coding Level of Care Code Est Pt Level 4 (66268) Complex EM visit Add On G2211 Diagnoses PAD (peripheral artery disease) I73.9
--- OUTSIDE RECORDS SUMMARY | 2025-06-17 12:37 | XMS_ITS | Clinical Summary ---
Author Organization [facility] it Address [address] [place] [address] Care Team Providers Care Paste Mixer Name Role Phone Nilam Manning MD Primary Care Provider [phone] Allergies Active Allergy Reactions Criticality Noted Date [...] undiagnosed cardiovascular disease which can lead to [place], CVA and adverse medical complication including but not limited to . Prediabetes 09/02/2015 Prostate cancer (CMS/[facility] V24, CMS/HCC V28) 12/26 Overview (09/20/2024): Sees urology group of [facility] BPH (benign prostatic hyperplasia) 10/23/2012 Overview (09/20/2024): Psa 4.4 10/14 - start finasteride Diverticulitis of colon without hemorrhage 07/20 Overview (09/20/2024): Incidental finding at colonoscopy 07/20/2012. GERD (gastroesophageal reflux disease) 2 Overview (09/20/2024): Normal EGD on PPI rx 07/20/2012. Erectile dysfunction 07/16/2009 Essential hypertension, benign 09/22/2006 Overweight 07/25/2006 Pure hypercholesterolemia 07/25/2006 Immunizations Name Administration Dates Next Due H1N1 [...] Site/Laterality Comments OTHER SURGICAL HISTORY 2004 PROCEDURE: [place] CLTX DSTL XTNSR TDN INSJ W/WO PERCUTAN PINNING; COMMENT: RIGHT 3RD DORSAL OTHER SURGICAL HISTORY 2001 PROCEDURE: REMOVAL OF RECTAL LESION; COMMENT: fibroepithelial tag. COLONOSCOPY 04/02 PROCEDURE: [place] COLONOSCOPY STOMA DX INCLUDING COLLJ SPEC SPX; COMMENT: negative except for internal tag (subsequently removed) COLONOSCOPY 07/20/2012 PROCEDURE: [place] COLONOSCOPY FLX DX W/COLLJ SPEC WHEN PFRMD; COMMENT: minimal diverticulosis ESOPHAGOGASTRODUODENOSCOPY 07/20/2012 PROCEDURE: W[place] ESOPHAGOGASTRODUODENOSCOPY TRANSORAL DIAGNOSTIC; COMMENT: normal on PPI [...] 10/23/2012 DX:BPH (benign prostatic hyperplasia) Prostate cancer (CMS/HCC V24 , CMS/HCC V28) 12/26/2013 DX:Prostate cancer (HCC) Diet-controlled type 2 diabe joe mellitus (CMS/HCC V24, CMS/HCC V28) 09/02/2015 DX:Diet-controlled type 2 [...] Vaccine: 50+ Years (3 of 3 - PCV20 or PCV21) 02/27/2020 02/26/2015, 10/13/2008 COVID-19 Vaccine (3 - Pfizer risk series) 02/13/2021 01/16/2021, 12/26/2020 Falls Risk Assessment 09/10/2022 Social Influencers of Health Screening 09/10/2022 Depression Screening 10/02/2024 Hypertension/CHF/CAD Annual BMP Blood Test 12/21/2024 12/22/2023 Influenza Vaccine (#1) 2025 0, 09/05/2018, 08/28/2017, Additional history exists DTaP,Tdap,and Td [...] tion,abstr acted Anatomical Region Laterality Modality Other Historical Provider HEALTH MAINTENANCE Final Result * Annual BMP Blood Test (12/22/2023) Annual BMP Blood Test abstracted [facility] Provider HEALTH MAINTENANCE Final Result * (ABNORMAL) Lipid panel (12/22/2023) Pathologist [facility] LDL/HDL Ratio 4 0 - 4 Triglycerides [...] evidence of AAA. us Nilam Manning MD IM US PROCEDURES Final Result * Hepatitis C Screening (05/10/2013) Hepatitis C Screening abstracted Historical Provider HEALTH MAINTENANCE Final Result from Last 3 Months or Most Recently Relevant to Health Maintenance Care Teams Paste Mixer Relationship Specialty Start Date End Date Nilam Manning MD [address] [place] [address] PCP - General Internal Medicine 01/11/21
== END 2025-06-17 10:48 | disposition home or self-care (01) ==
LOC: HO.HVS 09:49
PROVIDERS: PCP Physician Assistant; Visit Provider Surgery Vascular Surgery
DX: I73.9 Peripheral vascular disease, unspecified (principal)
CPT/HCPCS: 99214; G2211

== ENCOUNTER → 2025-06-17 09:48 | Outpatient (BNVA) | payer MEDICARE, SELFPAY | PROVIDERS: PCP Physician Assistant; Visit Provider Surgery Vascular Surgery | DX: I73.9 Peripheral vascular disease, unspecified (principal) | CPT/HCPCS: 99212 ==

== ENCOUNTER 2025-07-22 10:54 | Outpatient (REF) | payer MEDICARE, SELFPAY ==
[2025-07-22 17:46] LABS: Anion Gap 9 (12-20)
[2025-07-22 17:50] LABS: Alanine Aminotransferase 24 U/L (0-40); Albumin Level 4.2 g/dL (3.5-5.0); Alkaline Phosphatase 66 U/L (39-117); Aspartate Amino Transferase 31 U/L (5-37); Blood Urea Nitrogen 17 mg/dL (9-16); Calcium 9.2 mg/dL (8.4-10.2); Carbon Dioxide 25 mmol/L (22-29); Chloride 110 mmol/L (96-108); Cholesterol 166 mg/dL (<200); Estimated Glomerular Filt Rate > 60; HDL Cholesterol 36 mg/dL (>40); Potassium 4.4 mmol/L (3.3-5.1); Sodium 140 mmol/L (135-145); Total Protein 6.4 g/dL (6.5-8.0); Triglycerides 126 mg/dL (<150)
== END 2025-07-22 10:55 | disposition home or self-care (01) ==
LOC: HO.WFDLDS 10:54
PROVIDERS: Visit Provider Physician Assistant
DX: I10 Essential (primary) hypertension (principal); E78.2 Mixed hyperlipidemia; D64.9 Anemia, unspecified; R73.03 Prediabetes; R73.01 Impaired fasting glucose
CPT/HCPCS: 36415; 80053; 80061; 83036; 84443

== ENCOUNTER 2025-08-14 07:52 | Outpatient (AMB) | payer OTHER, SELFPAY ==
--- OUTSIDE RECORDS SUMMARY | 2025-08-14 07:57 | XMS_ITS | Clinical Summary ---
Author Organization [facility] it Address [address] [place] [address] Care Team Providers Care Senior Java Programmer Analyst Name Role Phone Nilam Mannign MD Primary Care Provider [phone] Allergies Active Allergy Reactions Criticality Noted Date [...] undiagnosed cardiovascular disease which can lead to [place], CVA and adverse medical complication including but not limited to . Prediabetes 09/02/2015 Prostate cancer (CMS/[facility] V24, CMS/[facility] V28) 12/26 Overview (09/20/2024): Sees [facility] BPH (benign prostatic hyperplasia) 10/23/2012 Overview (09/20/2024): Psa 4.4 10/14 - start finasteride Diverticulitis of colon without hemorrhage 07/20 Overview (09/20/2024): Incidental finding at colonoscopy 07/20/2012. GERD (gastroesophageal reflux disease) 2 Overview (09/20/2024): Normal EGD on PPI rx 07/20/2012. Erectile dysfunction 07/16/2009 Essential hypertension, benign 09/22/2006 Overweight 07/25/2006 Pure hypercholesterolemia 07/25/2006 Immunizations Immunization Administration Dates Next Due H1N1 Inj Preservative [...] Site/Laterality Comments OTHER SURGICAL HISTORY 2004 PROCEDURE: SC CLTX DSTL XTNSR TDN INSJ W/WO PERCUTAN PINNING; COMMENT: RIGHT 3RD DORSAL OTHER SURGICAL HISTORY 2001 PROCEDURE: REMOVAL OF RECTAL LESION; COMMENT: fibroepithelial tag. COLONOSCOPY 04/02 PROCEDURE: SC COLONOSCOPY STOMA DX INCLUDING COLLJ SPEC SPX; COMMENT: negative except for internal tag (subsequently removed) COLONOSCOPY 07/20/2012 PROCEDURE: SC COLONOSCOPY FLX DX W/COLLJ SPEC WHEN PFRMD; COMMENT: minimal diverticulosis ESOPHAGOGASTRODUODENOSCOPY 07/20/2012 PROCEDURE: SC ESOPHAGOGASTRODUODENOSCOPY TRANSORAL DIAGNOSTIC; COMMENT: normal on PPI [...] Used Date Smoking Tobacco: Former Cigarettes 0.1 Q uit: 07/09/2016 Smokeless Tobacco: Former Alcohol [...] tion,abstr acted Anatomical Region Laterality Modality Other [facility] Provider HEALTH MAINTENANCE Final Result * Annual BMP Blood Test (12/22/2023) Annual BMP Blood Test abstracted [facility] Provider [facility] Final Result * (ABNORMAL) Lipid panel (12/22/2023) [...] cm each. CONCLUSIONS: No evidence of AAA. iNlam Manning MD IMG US PROCEDURES Final Result * Hepatitis C Screening (05/10/2013) Hepatitis C Screening abstracted Historical Provider HEALTH MAINTENANCE Final Result from Last 3 Months or Most Recently Relevant to Health Maintenance Care Teams Senior Java Programmer Analyst Relationship Specialty Start Date End Date Nilam Manning MD [address] [place] [id number] PCP - General Internal Medicine 01/11/21
[2025-08-14 08:01] VITALS: BP 126/78; PULSE 76; RESP 16; TEMP 36.9; O2SAT 96; BMI 29.7
--- NOTE | 2025-08-14 08:01 | MHC.PC.OV ---
Vital Signs 08/14/25 08:01 Height 5 ft 11 in Weight 213 lb BMI 29.7 BP 126/78 Blood Pressure Location Lt brachial Position Sitting Respiration 16 Pulse 76 Pulse Source Pulse Oximeter Temp 98.4 F Temp Source Oral Pulse Oximetry (%) 96 Oxygen Delivery Method Room Air Intake Visit Reasons: Annual PE - see comments Intake Note: Physical Monotype Operator Required: No Allergies No Known Allergies Allergy (Verified 06/17/25 10:12) Medication List - Last Reconciled 08/14/25 by Shweta Montano PA-C ascorbic acid (vitamin C) 500 mg PO DAILY aspirin 81 mg PO DAILY atorvastatin 80 mg PO DAILY calcium carbonate-vitamin D3 500 mg-10 mcg (400 unit) 1 tab PO DAILY finasteride 5 mg PO DAILY lisinopril 30 mg PO DAILY omeprazole 20 mg PO DAILY sildenafil 100 mg PO DAILY PRN vitamin B complex 1 tab PO DAILY Tobacco use date assessed: 08/14/25 Fall risk assessment: No Falls in past year Last assessed Fall Risk: 08/14/25 Dental Screening Dental Screen Date: 02/12/25 HPI Annual PE - see comments HPI Details Pt is a 69 y/o male who presents today for a cpe. He has a hx of ED, GERD, HTN, HLD and prostate ca. Uro: dx with prostate ca 10 years ago and is just monitoring it. He was seen recently and states that the PSA has further decreased. He is on finasteride.. following with Dr. Mahoney. He is on sildenafil for ED. CV: bp today is 126/78. He is on lisinopril 30 mg. Cholesterol is managed atorvastatin 80 mg. Vasc: Following with vascular surgery annually for his PAD. Remains on statin and aspirin GI: He states that his GERD is well-controlled with omeprazole. Endo: A1c was 6.2. It did increase. He states that he is struggling a little with his diet. Heme: follows with heme/onc. B12 has improved. Colonoscopy: 12/29/23- polyps and due in 2028 Former social smoker (smoked while golfing). had AAA screening which was negative [facility] Family History Mother Hypertension High cholesterol Cancer Father Hypertension High cholesterol Mother High cholesterol Father High cholesterol Diabetes Father Diabetes Cancer Other Asthma Social History (Updated 08/14/25 @ 08:05 by Henna Song CMA) Household Members: Spouse Housing: House Alcohol intake: current Patient Tobacco Use Status: Former Tobacco user Cigarette Packs Per Day: 0.25 Years Smoked: 40 e-Cigarette/Vaping Use: Never Used Second Hand Smoke Exposure: Yes (past) Substance Use Type: Marijuana service: No Current occupational status: retired Gender identity: Male Cognitive needs: No Hearing needs: No Vision needs: No Questionnaire Thrive Questionnaire Date Thrive assessed: 02/05/25 I am a: Patient What is your living situation today?: I have a steady place to live Within the past 12 months, did the food you bought not last and you didn't have the money to get more?: Never true Within the past 12 months, did you worry whether your food would run out before you got money to buy more?: Never true Do you have trouble paying for medicines?: No Do you have trouble getting transportation to medical appointments?: No Do you have trouble paying your heating and electricity bill?: No Do you have trouble taking care of your child, family member or friend?: No Do you have trouble with day-to-day activities such as bathing, preparing meals, shopping, managing finances, etc.?: No Are you currently unemployed and looking for a job?: No Are you interested in more education?: No Please select the resources that you would like help with: None Currently or been in a relationship where the following occur: No concerns reported THRIVE Score: 0 AUDIT C Alcohol Use Questionnaire (AUDIT-C) 1. How often do you have a drink containing alcohol?: 2-3 times a week 2. How many drinks containing alcohol do you have on a typical day when you are drinking?: 1 or 2 3. How often do you have six or more drinks on one occasion?: Never Total Score: 3 WILLIAM-7 AMB Questionnaire WILLIAM-7 Date WILLIAM - 7 assessed: 02/12/25 Source: Developed by Drs. Fili Frausto, Lisa Marcial, Juan Manuel Kirk and colleagues, with an educational chuck from [employer]. Physical exam (Primary Care) Vital Signs: Last Vital Signs Temp 98.4 F 08/14/25 08:01 Pulse 76 08/14/25 08:01 Resp 16 08/14/25 08:01 BP 126/78 08/14/25 08:01 Pulse Ox 96 08/14/25 08:01 Oxygen Delivery Method Room Air 08/14/25 08:01 BMI result Body Mass Index 29.7 Tobacco/Smoking Status: Tobacco use Status Tobacco use date assessed 08/14/25 08/14/25 08:04 Patient Tobacco Use Status Former Tobacco user 08/14/25 08:05 e-Cigarette/Vaping Use Never Used 08/14/25 08:05 Thrive Assessment: Date of Thrive Assessment Date Thrive assessed 02/05/25 08/14/25 08:04 Currently or been in a relationship where the following occur: No concerns reported Const Orientation/consciousness: patient oriented x3 HENMT Ears: hearing grossly normal bilaterally and TM's normal bilaterally General nose exam: No nasal polyps present Face and sinus: Yes sinuses nontender Mouth: Normal oral and palatal mucosa present Eyes Pupils: Equal, round and reactive pupils present EOM: EOMs intact bilaterally Neck Neck: Yes full ROM and Yes no lymphadenopathy Thyroid: Thyroid normal Chest Chest palpation & inspection: normal inspection of the chest Resp Auscultation: clear to auscultation bilaterally Cardio Rate: regular rate Rhythm: regular rhythm Heart sounds: S1 normal heart sound present and S2 normal heart sound present Peripheral pulses: Peripheral pulses 2+ throughout GI Other: Soft, nontender Auscultation: normal bowel sounds Rectal Exam - Male: Yes deferred General: Yes no CVA tenderness Back/Spine/Pelvis Other: Nontender Back: no CVA tenderness Skin General skin exam: no rashes or lesions noted Neuro General: patient oriented x3, gait normal, CN's II-XI intact bilaterally and deep tendon reflexes 2+ bilaterally Cranial nerves: Yes Equal, round and reactive pupils present Motor exam (neuro): 5/5 motor strength present throughout Sensory Exam: double simultaneous stimulation for sensation normal Coordination: [id number] test normal and Romberg test negative Extrem General: Yes normal to inspection and Yes full ROM Psych Affect: normal affect Attitude: cooperative Thought process: Normal thought process present Thought content: Normal thought content present Insight: Good insight present (Psych) Judgement: Good judgement present (Psych) Office Procedures Flu Questionnaire Does the patient have a severe egg allergy?: No Does the patient have severe life threatening allergies?: No Does the patient have a fever or illness today?: No Has the patient ever had Guillain-[place] Syndrome?: No Has the patient ever had any past reaction to a flu shot?: No Immunizations Fluarix [id number] (PF) 45 mcg (15 mcg x 3)/0.5 mL IM syringe Performing Provider: Shweta Montano PA-C [place] [facility] [place] [facility] Administered by: Paige Estrella CMA on 08/14/25 08:44 Dose Route Admin Location Dispensed Lot Number Expiration Date NDC Computational Sciences Professor 0.5 mL IM Left Deltoid 0.5 mL [id number] 03/31/26 [id number] [employer] VIS Given Date VIS Provided VIS Publication Date 08/14/25 Single Vaccine 24 Eligibility Eligibility Date Funding Source Not [facility] Eligible 08/14/25 Private Results Reviewed Results Reviewed: Laboratory Tests 06/12/25 07/22/25 15:49 10:55 WBC 7.1 RBC 4.41 L Hgb 13.3 L Hct 38.8 L Plt Count 179 Sodium 140 Potassium 4.4 Chloride 110 H Carbon Dioxide 25 Anion Gap 9 L BUN 17 H Creatinine 0.99 Estimated GFR > 60 Random Glucose 112 Estimat Average Glucose 131 Hemoglobin A1c % 6.2 H Calcium 9.2 Triglycerides 126 Cholesterol 166 LDL Cholesterol, Calc 105 H HDL Cholesterol 36 L Coding Level of Care Code Est Pt Prev Care >65y(54646) Diagnoses Routine general medical examination at a health care facility Z00.00 Primary hypertension I10 Hypertension type: primary hypertension Mixed hyperlipidemia E78.2 Hyperlipidemia type: mixed hyperlipidemia Prediabetes R73.03 Anemia D64.9 Prostate CA C61 Assessment & Plan Assessment & Plan (1) Routine general medical examination at a health care facility: Code(s): Z00.00 - Encounter for general adult medical examination without abnormal findings Plan: Health maintenance reviewed Labs ordered Flu shot today (2) Hypertension: Code(s): I10 - Essential (primary) hypertension Category: Medical Qualifiers: Hypertension type: primary hypertension Qualified Code(s): I10 - Essential (primary) hypertension Plan: Well-controlled. Continue current regimen (3) Hyperlipidemia: Code(s): E78.5 - Hyperlipidemia, unspecified Category: Medical Qualifiers: Hyperlipidemia type: mixed hyperlipidemia Qualified Code(s): E78.2 - Mixed hyperlipidemia Plan: We will continue to monitor continue atorvastatin (4) Prediabetes: Code(s): R73.03 - Prediabetes Category: Medical Plan: We did review that his A1c has continued to increase. We will start patient on Trulicity. Discussed risks and benefits and adverse effects of this medication including nausea, vomiting, diarrhea, constipation, increased risk of pancreatitis, gastroparesis etc.. We will follow up in a few months and recheck labs. He will let me know sooner if anything worsens or changes. (5) Anemia: Code(s): D64.9 - Anemia, unspecified Category: Medical Plan: Has follow up in 6 months with Hematology (6) Prostate CA: Code(s): C61 - Malignant neoplasm of prostate Category: Medical Plan: following with Dr. Mahoney Orders: Orders Hemoglobin A1c Today C61 - Malignant neoplasm of prostate, D64.9 - Anemia, unspecified, E78.2 - Mixed hyperlipidemia, I10 - Essential (primary) hypertension, I73.9 - Peripheral vascular disease, unspecified, R73.01 - Impaired fasting glucose, R73.03 - Prediabetes TSH reflex Free T4 Today C61 - Malignant neoplasm of prostate, D64.9 - Anemia, unspecified, E78.2 - Mixed hyperlipidemia, I10 - Essential (primary) hypertension, I73.9 - Peripheral vascular disease, unspecified, R73.03 - Prediabetes Influenza [id number] Immunization Today Z23 - Encounter for immunization Comprehensive [place]. Panel Fast Today C61 - Malignant neoplasm of prostate, D64.9 - Anemia, unspecified, E78.2 - Mixed hyperlipidemia, I10 - Essential (primary) hypertension, I73.9 - Peripheral vascular disease, unspecified, R73.03 - Prediabetes Lipid Panel Today C61 - Malignant neoplasm of prostate, D64.9 - Anemia, unspecified, E78.2 - Mixed hyperlipidemia, I10 - Essential (primary) hypertension, I73.9 - Peripheral vascular disease, unspecified, R73.03 - Prediabetes Medications: New dulaglutide (Trulicity) 0.75 mg (0.5 mL) subcut QWEEK 2 mL 2RF
== END 2025-08-14 08:36 | disposition home or self-care (01) ==
LOC: HO.HMCFM 07:52
PROVIDERS: PCP Physician Assistant; Visit Provider Physician Assistant
DX: Z00.00 Encounter for general adult medical examination without abnormal findings (principal); I10 Essential (primary) hypertension; E78.2 Mixed hyperlipidemia; R73.03 Prediabetes; D64.9 Anemia, unspecified; C61 Malignant neoplasm of prostate; Z23 Encounter for immunization

== ENCOUNTER → 2025-08-14 07:52 | Outpatient (BNVA) | payer MEDICARE, SELFPAY | PROVIDERS: PCP Physician Assistant; Visit Provider Physician Assistant | DX: I10 Essential (primary) hypertension (principal); E78.2 Mixed hyperlipidemia; R73.03 Prediabetes; D64.9 Anemia, unspecified; C61 Malignant neoplasm of prostate; Z23 Encounter for immunization | CPT/HCPCS: 90471; 90656 ==